=== PATIENT | male | born 1950 | race Caucasian/White ===

== ENCOUNTER → 2017-08-09 | Emergency (ER) | payer MEDICARE, SELFPAY | PROVIDERS: Emergency Provider Emergency Medicine; Family Provider Nurse Practitioner Family; Visit Provider Emergency Medicine | DX: E78.5 Hyperlipidemia, unspecified (principal); R06.02 Shortness of breath | CPT/HCPCS: 71020; 80053; 82550; 83605; 83880; 84484; 85025; 87040; 93005; 93041; 94640; 96374; 99284 ==

== ENCOUNTER → 2017-10-07 16:27 | Outpatient (CLI) | payer MEDICARE, SELFPAY ==
--- NOTE | 2017-10-07 16:37 | XR_ITS ---
XR chest 2V HISTORY: ITS.REASON: COUGH ORDERING PHYSICIAN: Tierra Mo PATIENT AGE: 67 years COMPARISON: 08/09/2017 FINDINGS: The cardiomediastinal silhouette and pulmonary vascularity are within normal limits. COPD with emphysematous change. Previously noted patchy infiltrate in right lung base has improved. There does remain some increased markings in this region. This may be due to vascular crowding however one cannot exclude possibility of infiltrate or atelectasis. There is also patchy density in the left midlung somewhat ill-defined. This area measures approximately 3 cm and has a rounded contour. Developing pulmonary nodule or round pneumonia is a consideration. Also could be related to healing rib fracture. Chest CT suggested for further evaluation. There is a healing rib fracture involving the right eighth rib. IMPRESSION: 1. COPD. 2. Developing nodule versus rounded pneumonia or healing rib fractures the left midlung. Recommend CT. 3. Chronic changes right lung base with possible superimposed atelectasis or infiltrate
== END ==
PROVIDERS: PCP Nurse Practitioner Family; Visit Provider Nurse Practitioner Family
DX: R05 Cough (principal)
CPT/HCPCS: 71046

== ENCOUNTER → 2017-10-24 14:06 | Outpatient (CLI) | payer MEDICARE, SELFPAY ==
[2017-10-24 14:31] LABS: Blood Urea Nitrogen 9 mg/dL (7-18); Creatinine,Serum 0.96 mg/dL (0.70-1.30); Estimated Glomerular Filt Rate 78 ml/min (>60); GFR (African American) 95 ML/MIN (>60)
--- NOTE | 2017-10-24 14:33 | CT_ITS ---
CT chest w con Ordering Physician: Tierra Mo Patient Age: 67 years: Male HISTORY: ITS.REASON: PULMONARY NODULE TECHNIQUE: Helical CT scanning performed the chest following 35 cc [id number]. Sagittal and coronal reconstructions on CT workstation. COMPARISON : FINDINGS Lung romero. Prominent COPD. centri lobar emphysematous changes with numerous blebs throughout the lung romero bilaterally particularly most evident towards upper lung romero and overall blebs more evident throughout the right lung than left . No highly suspect nodules or masses. Left lung. At the left CP angle is a small 6.6 mm area of nodularity most likely related to scarring.. Annual follow-up LD CT would be adequate here. There are some additional areas of linear pleural/parenchymal scarring towards the posterior left base. Right lung: right midlung axial image 44 is a small focal 3.5 mm density which also appears to be related to scarring on other projections. Sagittal slice 28 and coronal 44... Follow-up in one year adequate Small 8 mm length pleural calcification at the medial right lung base on axial 64. No associated mass. Likely reflects old inflammation. 4.4 mm benign calcified granuloma posterior right lower lobe axial slice 59. Associated calcified right hilar node largest measuring just less than 1 cm the right domonique is otherwise satisfactory with no hilar mass or adenopathy at right nor left domonique. Mediastinum. No mediastinal adenopathy or mass. Aorta appears satisfactory. Heart with coronary artery calcification at LAD and minimal calcification at the left main. It Upper Abdomen: A prominent hiatal hernia measuring up to 4.7 cm diameter. Upper normal wall thickness here. . Adrenals unremarkable.Spleen appears upper normal in size LIVER: 14 mm diameter x 16 mm length low-density area left lobe liver. Nonspecific density. Also be helpful for comparison Does not meet criteria for benign cyst. Suggest ultrasound to further evaluate and if not a cyst follow-up CT with contrast using hemangioma warranted if no outside studies. Osseous structures. No significant findings. Mild intramarginal osteophytes and early degenerative changes T-spine with mild kyphosis throughout T-spine. IMPRESSION 1. COPD. Prominent emphysematous changes lungs bilaterally. 2.. No suspicious nodules or masses at lungs. . Small nodular density left CP angle most likely due to scarring as is a small area of density at the right midlung. Follow-up low-density screening CT and one year follow these pulmonary features suggested. 3. Indeterminate 16 mm vague low-density area at the inferior left lobe of liver. Doubt cyst but would recommend ultrasound as next step for for this minor incidental unimpressive finding. .. If no cyst identified then follow-up CT with contrast warranted (suggest CT hemangioma protocol/ triphasic technique) 4. Spleen upper normal size. Hilar hernia.
== END ==
LOC: RAD 14:06
PROVIDERS: Internal Medicine; Family Provider Nurse Practitioner Family; PCP Nurse Practitioner Family; Visit Provider Nurse Practitioner Family
DX: Y99.9 Unspecified external cause status (principal)
CPT/HCPCS: 36415; 71260; 82565; 84520

== ENCOUNTER → 2017-10-24 14:10 | Outpatient (CLI) | payer MEDICARE, SELFPAY | PROVIDERS: Visit Provider Internal Medicine | DX: R91.1 Solitary pulmonary nodule (principal) | CPT/HCPCS: 36415; 71260; 82565; 84520 ==

== ENCOUNTER → 2017-11-11 08:19 | Outpatient (CLI) | payer MEDICARE, SELFPAY ==
--- NOTE | 2017-11-11 08:24 | US_ITS ---
US abdomen limited: HISTORY: ITS.REASON: LIVER MASS, ORDERING PHYSICIAN: Tierra Mo PATIENT AGE: 67 years COMPARISON: CT scan of 10/24/2017 FINDINGS: PANCREAS: Unremarkable. No obvious mass or abnormal fluid collection. No ductal dilatation LIVER: There is a hyperechoic 1.6 cm lesion involving the left hepatic lobe which may correspond to the CT abnormality. This may represent a hemangioma. A 1.5 cm cyst is present in the right hepatic lobe. This may not have been covered on the CT scan RIGHT KIDNEY: Unremarkable. Normal size and echogenicity. No hydronephrosis GALLBLADDER: No gallstones, gallbladder wall thickening, pericholecystic fluid, or biliary dilatation. IMPRESSION: 1. Hyperechoic 16 mm lesion in the left hepatic lobe likely corresponding to the CT abnormality and may be due to a hemangioma. This may be confirmed with CT with hemangioma protocol. 2. Hypoechoic lesion in the right hepatic lobe which may represent a hepatic cyst. Small vessels very close if not traversing along the lateral aspect of this lesion, therefore follow-up is recommended to confirm stability
== END ==
PROVIDERS: Family Provider Nurse Practitioner Family; PCP Nurse Practitioner Family; Visit Provider Nurse Practitioner Family
DX: D37.6 Neoplasm of uncertain behavior of liver, gallbladder and bile ducts (principal)
CPT/HCPCS: 76705

== ENCOUNTER → 2018-03-02 08:15 | Outpatient (CLI) | payer MEDICARE, SELFPAY ==
--- NOTE | 2018-03-02 08:30 | XR_ITS ---
XR DEXA axial skeleton COMPARISON: None HISTORY: History of fracture as an adult TECHNIQUE: DEXA scanning lumbar spine and bilateral hips FINDINGS: The areas BMD lumbar spine L1-L4 is 1.228 g/sq cm and the T score is 0.1. The total BMD right hip is 0.958 g centimeters square the T score -1.0 and the right femoral neck is 0.985 g centimeters square the T score of -0.7. The total BMD left hip is 0.959 g centimeters square with a T score of -1.0. The left femoral neck is 0.942 g centimeters square with T score -1.0. IMPRESSION: Normal study lumbar spine and both hips although the hips are borderline for osteopenia
[2018-03-02 08:43] LABS: Blood Urea Nitrogen 12 mg/dL (7-18); Creatinine,Serum 0.95 mg/dL (0.70-1.30); Estimated Glomerular Filt Rate 79 ml/min (>60); GFR (African American) 96 ML/MIN (>60)
--- NOTE | 2018-03-02 08:48 | CT_ITS ---
CT abdomen CLINICAL HISTORY: Suspected hemangioma left lobe of liver seen on recent ultrasound study TECHNIQUE: Axial images obtained with sagittal and coronal reformats. All CT scans at this facility use one or more dose reduction techniques, viz.: automated exposure control; ma/kV adjustment per patient size (including targeted exams where dose is matched to indication; i.e. head) or iterative reconstruction technique. Delayed imaging was performed as per hemangioma protocol. Scanning was performed from the hemidiaphragms to the iliac crest COMPARISON: Ultrasound abdomen limited 11/11/2017 PROCEDURE: With delayed imaging as per hemangioma protocol. No oral contrast was given.. FINDINGS: Lung bases: Mild centrilobular emphysematous changes are noted, there is no infiltrate and no pleural fluid or ABDOMEN: Liver the liver is normal in size. There is a hypodense lesion left lobe of liver measuring 1.7 cm in diameter which becomes isodense with liver parenchyma on the third phase of scanning typical of a hemangioma. . There is a small benign-appearing hepatic cyst lower portion right lobe of the liver measuring 10-11 mm in size.. Gallbladder: Nondistended. No radio opaque stones. Pancreas: No masses or peripancreatic fluid collections. Spleen: Unremarkable. Adrenals: Unremarkable Kidneys/ureters: No masses. No renal calculi. No hydronephrosis. No perinephric fluid collections. No ureteral dilatation or obvious ureteral calculi. Stomach appears grossly normal. The visualized portion of the small bowel appears normal. Impression: Small hypodense lesion left lobe of the liver showing typical imaging findings of a hemangioma, small benign-appearing hepatic cyst lower aspect of the right lobe
--- NOTE | 2018-03-02 09:47 | [facility].ITSHM ---
lasix,potassium,ventlin,levothryroxine,gabapention,atorvastatin losartin
== END ==
PROVIDERS: Family Provider Nurse Practitioner Family; PCP Nurse Practitioner Family; Visit Provider Nurse Practitioner Family
DX: D37.6 Neoplasm of uncertain behavior of liver, gallbladder and bile ducts (principal); S22.32XA Fracture of one rib, left side, initial encounter for closed fracture; M54.5 Low back pain; M81.0 Age-related osteoporosis without current pathological fracture; M25.551 Pain in right hip; M25.552 Pain in left hip
CPT/HCPCS: 36415; 74177; 77080; 82565; 84520; Q9967

== ENCOUNTER → 2018-06-02 09:08 | Outpatient (POV) | payer MEDICARE, SELFPAY | PROVIDERS: Family Provider Nurse Practitioner Family; PCP Nurse Practitioner Family; Visit Provider Internal Medicine | DX: Z00.00 Encounter for general adult medical examination without abnormal findings (principal) ==

== ENCOUNTER 2019-08-11 20:49 | Observation (INO) ==
[2019-08-11 21:33] LABS: Basophils % 0.2 % (0.1-2.0); Eosinophils % 0.2 % (0.1-12.0); Hematocrit 32.8 % (42.0-52.0); Hemoglobin 11.5 g/dL (14.1-18.0); Lymphocytes # 0.6 K/mm3 (0.7-4.5); Lymphocytes % 4.2 % (10-50); Mean Corpuscular HGB Conc 35.2 g/dL (31.8-35.4); Mean Corpuscular Volume 88.1 fl (80-94); Mean Platelet Volume 7.4 fl (7.4-10.4); Monocytes # 0.9 K/mm3 (0.1-1.0); Monocytes % 6.1 % (1.7-9.3); Neutrophils # 12.6 K/mm3 (1.8-7.8); Neutrophils % 89.3 % (37.0-80.0); Platelet Count 254 K/mm3 (142-424); Red Blood Count 3.72 M/mm3 (4.60-6.20); Red Cell Distribution Width 14.3 % (11.5-17.5); White Blood Count 14.1 K/mm3 (4.8-10.8)
[2019-08-11 21:50] LABS: Alanine Aminotransferase 17 U/L (12-78); Albumin Level 3.5 gm/dL (3.4-5.0); Alkaline Phosphatase 129 U/L (46-116); Anion Gap 17.7 mEq/L (5-15); Aspartate Amino Transferase 12 U/L (15-37); Bilirubin,Direct 0.2 mg/dL (0.0-0.2); Bilirubin,Indirect 1.1 mg/dL (0.0-0.9); Bilirubin,Total 1.3 mg/dL (0.2-1.0); Blood Urea Nitrogen 26 mg/dL (7-18); Calcium 8.4 mg/dL (8.5-10.1); Carbon Dioxide 22 mmol/L (21.0-32.0); Chloride 98 mmol/L (98-107); Glucose 112 mg/dL (74-106); Sodium 134 mmol/L (136-145); Total Protein,Serum 7.3 gm/dL (6.4-8.2)
[2019-08-11 22:00] LABS: Erythrocyte Sedimentation Rate 93 mm/hr (0-20)
[2019-08-11 22:06] LABS: Lymphocytes % 5 % (10-50); Neutrophils % 88 % (42-76); RBC Morphology Normal; Total Cells Counted 100
--- NOTE | 2019-08-11 23:35 | Emergency Department Note ---
ED Disposition Clinical Impression: Obesity (BMI 30.0-34.9), SIRS (systemic inflammatory response syndrome), Elevated erythrocyte sedimentation rate CAP (community acquired pneumonia) Qualifiers: Laterality: right Lung location: upper lobe of lung Qualified Code(s): J18.9 - Pneumonia, unspecified organism COPD (chronic obstructive pulmonary disease) Qualifiers: COPD type: unspecified COPD Qualified Code(s): J44.9 - Chronic obstructive pulmonary disease, unspecified Disposition: Admitted as Observation Condition on Discharge: Good - Critical Care Critical Care Time: No Attestation: On 08/11/19, the high probability of a clinically significant, sudden or life threatening deterioration of the following system(s) required my full and direct attention, intervention and personal management. The time I documented below is in addition to time spent performing reported procedures but includes the following listed in this critical care notation. Medical Decision Making - Medical Records Medical records reviewed: Yes: I reviewed the patient's medical records. - Avelino Inquiry Pt receiving controlled substance: No Vital Signs: 08/11/19 20:50 08/11/19 21:27 Temperature 101.8 F H 99.5 F Temperature Source Oral Oral Pulse Rate [Right] 121 H 110 H Respiratory Rate 22 20 Blood Pressure [Right Arm] 154/95 H 140/83 Blood Pressure Mean [Right Arm] 114 102 Blood Pressure Source [Right Arm] Automatic Cuff Automatic Cuff Blood Pressure Position [Right Arm] Supine Supine 02 Sat by Pulse Oximetry 93 L 93 L Oxygen Delivery Method Room Air Room Air - Lab Data Lab results reviewed: Yes: I reviewed the patient's lab results. Lab Results 08/11/19 21:00: WBC 14.1 H, RBC 3.72 L, Hgb 11.5 L, Hct 32.8 L, MCV 88.1, MCH 31.0, MCHC 35.2, RDW 14.3, Plt Count 254, MPV 7.4, Neut % (Auto) 89.3 H, Lymph % (Auto) 4.2 L, [place] % (Auto) 6.1, Eos % (Auto) 0.2, Baso % (Auto) 0.2, Neut # (Auto) 12.6 H, Lymph # (Auto) 0.6 L, [place] # (Auto) 0.9, Eos # (Auto) 0.0, Baso # (Auto) 0.0, Total Counted 100, Neutrophils % (Manual) 88 H, Band Neutrophils % 7.0, Lymphocytes % (Manual) 5 L, Platelet Estimate Normal, RBC Morphology Normal, ESR 93 H 08/11/19 21:00: Sodium 134 L, Potassium 3.7, Chloride 98, Carbon Dioxide 22, Anion Gap 17.7 H, BUN 26 H, Creatinine 1.12, Estimated Creat Clear 93, Estimated GFR 65, Est GFR ( Amer) 79, Glucose 112 H, Calcium 8.4 L, Total Bilirubin 1.3 H, Direct Bilirubin 0.2, Indirect Bilirubin 1.1 H, AST 12 L, ALT 17, Alkaline Phosphatase 129 H, Troponin I < 0.02, Total Protein 7.3, Albumin 3.5 08/11/19 21:00: Lactate 1.0 08/11/19 21:00: Influenza Type A Ag Negative, Influenza Type B Ag Negative 08/11/19 23:30: Urine Color Yellow, Urine Appearance Sl cloudy, Urine pH 6.0, Ur Specific [place] 1.010, Urine Protein Negative, Urine Glucose (UA) Negative, Urine Ketones Negative, Urine Blood Negative, Urine Nitrate Negative, Urine Bilirubin Negative, Urine Urobilinogen 0.2, Ur Leukocyte Esterase Negative, Amorphous Sediment Trace Result diagrams: 08/11/19 21:00 08/11/19 21:00 Orders (Tests/Meds): ED MEDICATIONS Generic Name Dose Route Start Last Admin Trade Name Freq PRN Reason Stop Dose Admin Azithromycin 500 mg/ Sodium 250 mls @ 250 mls/hr 08/11/19 23:30 08/11/19 23:32 Chloride IV 08/25/19 23:29 250 mls/hr Q24H JEFF Administration Protocol Ceftriaxone Sodium 1 gm/ 50 mls @ 100 mls/hr 08/11/19 23:30 08/11/19 23:31 Sodium Chloride IV 08/25/19 23:29 100 mls/hr Q24H JEFF Administration Protocol Sodium Chloride 3 ml 08/11/19 21:02 Sodium Chloride 3% 15ml Neb IH 09/10/19 21:01 ONCE PRN INDUCE SPUTUM COLLECTION Discontinued Medications Generic Name Dose Route Start Last Admin Trade Name Freq PRN Reason Stop Dose Admin Acetaminophen 1,000 mg 08/11/19 21:02 08/11/19 21:04 Tylenol 500mg Tablet PO 08/11/19 21:03 1,000 mg ONCE ONE Administration Albuterol/Ipratropium 3 ml 08/11/19 21:02 08/11/19 21:04 Duoneb 3ml Neb IH 08/11/19 21:03 3 ml ONCE ONE Administration Aspirin 324 mg 08/11/19 21:02 08/11/19 21:04 Aspirin 81mg Chewable Tablet PO 08/11/19 21:03 324 mg ONCE ONE Administration Sodium Chloride 1,000 mls @ 999 mls/hr 08/11/19 21:15 08/11/19 21:04 Sod Chlor 0.9% 1000ml Bag IV 08/11/19 22:15 999 mls/hr .Q1H1M JEFF Administration Methylprednisolone Sodium Succinate 125 mg 08/11/19 21:02 08/11/19 21:04 Solu-Medrol 125mg/2ml Vial IV 08/11/19 21:03 125 mg ONCE ONE Administration ORDERS Category Date Time Status XR chest 2V Stat Exams 08/11/19 21:02 Taken Troponin I Q3H Lab 08/12/19 00:05 Received Troponin I Q3H Lab 08/12/19 03:15 Ordered Blood Culture Stat Micro 08/11/19 21:00 Received Sputum Culture & Gram Stain Routine Micro 08/11/19 Ordered - Radiology Data #1 Image(s): Chest Image Reviewed: Yes I reviewed the patient's radiology image Preliminary Findings: Abnormal (rt sided changes ) - ECG Data Tracing #1 Normal Sinus Rhythm: Yes Ischemic changes: non-specific ST-T wave changes Chest Pain HPI - General Chief Complaint: Chest Pain Stated Complaint: chest pain Time Seen by Provider: 08/11/19 21:50 Mode of Arrival: Ambulatory Source of Information: Patient, Spouse, Medical Record Limitations: No Limitations Description of Symptoms (Recalled from ER Triage Doc. by RN): pt states he started having right chest pain starting yesterday - History of Present Illness HPI narrative: pt with sob and rt sided chest pain which started today - no prod cough - MD complaint: chest pain Onset (ago): day(s) Duration: intermittent Activity at onset: during rest Pain location: right chest Severity: moderate Quality: sharp Risk Factors for CAD: Family Hx of CAD Treatments prior to or on arrival for Cardiac Chest Pain: none - BEBO Score for Non-Stemi Age of Patient: 60-69 years old Heart Rate: 110-149 bpm Systolic Blood Pressure: 140-159 mmHg Serum Creatinine: 0.80-1.19 mg/dl CHF [place] Class: I-No CHF Other Risk Factors: None Non-Stemi Risk Score: 113 - Related Data Home Medications Medication Instructions Recorded Confirmed Amlodipine Besylate [Amlodipine 5 mg PO DAILY 08/11/19 08/11/19 5mg tab] Atorvastatin Calcium [Atorvastatin 40 mg PO HS 08/11/19 08/11/19 40mg Tab] Budesonide/Formoterol Fumarate 2 puff IH BID 08/11/19 08/11/19 [Symbicort 160-4.5 Mcg Inhaler] Furosemide [Furosemide 40MG tAB] 40 mg PO DAILY 08/11/19 08/11/19 Levothyroxine Sodium 50 mcg PO DAILY 08/11/19 08/11/19 [Levothyroxine 50mcg (0.05mg) Tab] Losartan Potassium 100 mg PO HS 08/11/19 08/11/19 Potassium Chloride [Pot Chlor 10 20 meq PO DAILY 08/11/19 08/11/19 mEq Tab] Allergies Allergy/AdvReac Type Severity Reaction Status Date / Time ampicillin [AMPICILLIN] Allergy Unknown Verified 08/11/19 21:03 prednisone [PREDNISONE] Allergy Unknown Verified 08/11/19 21:03 [facility] History - Hepatitis A Screen Drug use history?: No High risk sexual behaviors?: No History of sexually transmitted infection?: No Currently employed?: No Childcare worker?: No Do you have indoor plumbing?: Yes Do you have electricity?: Yes Attestation statement:: This patient has been screened for Hepatitis A risk factors. I have reviewed the patient's past medical history: Yes Medical History: Denies:: Diabetes Mellitus Type 1, Diabetes Mellitus Type 2 Laterality Cases: Right: Arthroscopy Shoulder - Social History Smoking Status: Former smoker Alcohol Intake: never Occupational Status: retired ROS Obtained: Yes All systems reviewed & no additional complaints - Constitutional Constitutional: Denies fever(s) - Eyes Eyes: Denies change in vision - ENT Ears, Nose, Mouth, and Throat: Denies sore throat - Cardiovascular Cardiovascular: Reports as per HPI, Reports chest pain, Reports dyspnea - Respiratory Respiratory: Yes cough, Yes non-productive cough - Gastrointestinal Gastrointestingal: Denies: abdominal pain - Genitourinary Male Genitourinary: Denies flank pain - Musculoskeletal Musculoskeletal: Denies joint pain, Denies joint swelling - Integumentary/Breasts Skin/Breast: Denies rash - Neurologic Neurologic: Denies headache(s), Denies seizure-like activity Physical Exam - General General appearance: alert, obese - Head Head exam: normocephalic - Eye Eye exam: Present: PERRL, EOMI. Absent: scleral icterus - ENT ENT exam: Present: mucous membranes dry - Neck Neck exam: Present: trachea midline - Respiratory Respiratory exam: Present: normal lung sounds bilaterally. Absent: respiratory distress - Cardiovascular Cardiovascular exam: Present: regular rate, systolic murmur, +S4 - Abdominal Exam Abdominal exam: Present: soft - Extremities Exam Extremities exam: Absent: calf tenderness - Neurological Exam Neurological exam: Present: alert, oriented X3, CN II-XII intact - Psychiatric Psychiatric exam: Present: normal affect - Skin Skin exam: Absent: rash
[2019-08-11 23:40] LABS: Microscopic, Urine URINE MICROSCOPIC (MICROSCOPIC)
[2019-08-11 23:41] LABS: Appearance,Urine SL CLOUDY (Clear); Bilirubin,Urine Negative (Negative); Blood, Urine Negative (Negative); Color,Urine YELLOW (Yellow); Glucose,Urine (UA) Negative (Negative); Ketones,Urine Negative (Negative); Leukocyte Esterase,Urine Negative (Negative); Protein,Urine Negative (Negative); Urobilinogen,Urine 0.2 EU/dl (0.2)
[2019-08-11 23:43] LABS: Amorphous Sediment,Urine Trace /lpf
[2019-08-12 04:09] LABS: Basophils % 0.1 % (0.1-2.0); Eosinophils % 0.1 % (0.1-12.0); Hematocrit 32.8 % (42.0-52.0); Hemoglobin 10.9 g/dL (14.1-18.0); Lymphocytes # 0.5 K/mm3 (0.7-4.5); Lymphocytes % 3.4 % (10-50); Mean Corpuscular HGB Conc 33.3 g/dL (31.8-35.4); Mean Corpuscular Volume 88.3 fl (80-94); Mean Platelet Volume 7.6 fl (7.4-10.4); Monocytes # 0.2 K/mm3 (0.1-1.0); Monocytes % 1.6 % (1.7-9.3); Neutrophils # 12.7 K/mm3 (1.8-7.8); Neutrophils % 94.8 % (37.0-80.0); Platelet Count 236 K/mm3 (142-424); Red Blood Count 3.72 M/mm3 (4.60-6.20); Red Cell Distribution Width 14.1 % (11.5-17.5); White Blood Count 13.4 K/mm3 (4.8-10.8)
[2019-08-12 04:15] LABS: Blood Urea Nitrogen 22 mg/dL (7-18); Calcium 8.1 mg/dL (8.5-10.1); Carbon Dioxide 23 mmol/L (21.0-32.0); Chloride 102 mmol/L (98-107); Sodium 137 mmol/L (136-145)
[2019-08-12 04:20] LABS: Glucose 183 mg/dL (74-106)
--- NOTE | 2019-08-12 07:36 | Pharmacy Consult Notes ---
[facility] Pharmacy VTE Monitoring - Patient Demographics Admission date: 08/11/19 Report Date: 08/12/19 Time: 07:36 Allergies/Adverse Reactions: Patient Allergies ampicillin [AMPICILLIN] Allergy (Unknown, Verified 08/11/19 21:03) prednisone [PREDNISONE] Allergy (Unknown, Verified 08/11/19 21:03) Height: 1.85 m Weight: 100.442 kg Patient Problems: Current Active Problems CAP (community acquired pneumonia) (Acute) COPD (chronic obstructive pulmonary disease) (Acute) Obesity (BMI 30.0-34.9) (Acute) SIRS (systemic inflammatory response syndrome) (Acute) Elevated erythrocyte sedimentation rate (Acute) - VTE Risk Labs: VTE Related Lab Results Hgb 10.9 g/dL (14.1-18.0) L 08/12/19 03:50 Hct 32.8 % (42.0-52.0) L 08/12/19 03:50 Plt Count 236 K/mm3 (142-424) 08/12/19 03:50 BUN 22 mg/dL (7-18) H 08/12/19 03:50 Creatinine 0.97 mg/dL (0.70-1.30) 08/12/19 03:50 Estimated Creat Clear 100 mL/min (50-200) 08/12/19 03:50 Was VTE Risk Assessment Performed: Yes VTE Score: 4 VTE Risk Level: Low Risk - Prophylaxis VTE Prophylaxis Ordered?: Yes Types of VTE Prophylaxis: TEDS Knee High Location of Applied Device: Bilateral Lower Extremeties - VTE Diagnosis Confirmed Treatment or plan recommended: Continue Current Treatment
--- NOTE | 2019-08-12 13:09 | H&P/Discharge Summary ---
General - General Admission date:: 08/12/19 Discharge date: 08/12/19 *Admission Date: 08/11/19 *Chief complaint: sob *History of present illness: 69-year-old male presented to the ER with complaints of right chest pain and shortness of breath. Patient states pain is worse with taking a deep breath. Based on x-ray further work-up on lung nodule. Patient denies cough, fever, or body aches. [facility] History I have reviewed the patient's past medical history: Yes Medical History: Reports:: Hyperlipidemia, Hypertension Denies:: Cancer, Diabetes Mellitus Type 1, Diabetes Mellitus Type 2, MRSA *Have you ever received a pneumonia vaccine?: Yes *Have you received a flu vaccine this season?: Yes Other Medical History: Reports: Arthritis Laterality Cases: Left: Arthroscopy Shoulder Other Surgeries: Yes: Hernia Repair (2) Amputation: No Fractures: Yes (LEFT ARM AND RIGHT FOOT) - *Social History Educational Level: Attended High School Smoking Status: Former smoker Tobacco Type: cigarettes # Packs/Day (cigarettes): 1 #Yrs smoked (if former smoker): 52 Smoking End Date: 2016 Alcohol Intake: never *Occupational Status:: retired Housing: house Household Members: spouse, children *Travel in the last 8 weeks: Outside the [facility] Family Hx:: Cancer, Tuberculosis Review of Systems - Review of Systems Review of systems:: pertinent systems reviewed and negative unless documented b elow - Constitutional Denies chills, Denies fever(s) - Eyes Denies change in vision - ENT Denies nasal discharge - *Cardiovascular Reports chest pain at rest, Reports chest pain with activity, Reports shortness of breath - *Respiratory Reports shortness of breath with activity, Reports pain on inspiration, Denies chest congestion, Denies cough - *Gastrointestinal Denies bloating, Denies nausea, Denies vomiting - *Genitourinary Denies urinary frequency - *Musculoskeletal Denies body aches - Integumentary/Breasts Denies rash - *Neurologic Denies abnormal movements, Denies headache(s), Denies seizure-like activity - Psychiatric Denies anxiety - Endocrine Denies flushing - Hematologic/Lymphatic Denies enlarged lymph nodes - Allergic/Immunologic Denies lip swelling Exam Vital signs and Labs for Last 24 Hours: Temp Pulse Resp BP Pulse Ox 97.6 F 104 H 18 138/85 95 08/12/19 12:24 08/12/19 12:24 08/12/19 12:24 08/12/19 12:24 08/12/19 12:24 Laboratory Results - last 24 hr 08/11/19 21:00: WBC 14.1 H, RBC 3.72 L, Hgb 11.5 L, Hct 32.8 L, MCV 88.1, MCH 31.0, MCHC 35.2, RDW 14.3, Plt Count 254, MPV 7.4, Neut % (Auto) 89.3 H, Lymph % (Auto) 4.2 L, Mcnairy % (Auto) 6.1, Eos % (Auto) 0.2, Baso % (Auto) 0.2, Neut # (Auto) 12.6 H, Lymph # (Auto) 0.6 L, Mcnairy # (Auto) 0.9, Eos # (Auto) 0.0, Baso # (Auto) 0.0, Total Counted 100, Neutrophils % (Manual) 88 H, Band Neutrophils % 7.0, Lymphocytes % (Manual) 5 L, Platelet Estimate Normal, RBC Morphology Normal, ESR 93 H 08/11/19 21:00: Sodium 134 L, Potassium 3.7, Chloride 98, Carbon Dioxide 22, Anion Gap 17.7 H, BUN 26 H, Creatinine 1.12, Estimated Creat Clear 93, Estimated GFR 65, Est GFR ( Amer) 79, Glucose 112 H, Calcium 8.4 L, Total Bilirubin 1.3 H, Direct Bilirubin 0.2, Indirect Bilirubin 1.1 H, AST 12 L, ALT 17, Alkaline Phosphatase 129 H, Troponin I < 0.02, Total Protein 7.3, Albumin 3.5 08/11/19 21:00: Lactate 1.0 08/11/19 21:00: Influenza Type A Ag Negative, Influenza Type B Ag Negative 08/11/19 23:30: Urine Color Yellow, Urine Appearance Sl cloudy, Urine pH 6.0, Ur Specific [place] 1.010, Urine Protein Negative, Urine Glucose (UA) Negative, Urine Ketones Negative, Urine Blood Negative, Urine Nitrate Negative, Urine Bilirubin Negative, Urine Urobilinogen 0.2, Ur Leukocyte Esterase Negative, Amorphous Sediment Trace 08/12/19 00:05: Troponin I < 0.02 08/12/19 03:50: WBC 13.4 H, RBC 3.72 L, Hgb 10.9 L, Hct 32.8 L, MCV 88.3, MCH 29.3, MCHC 33.3, RDW 14.1, Plt Count 236, MPV 7.6, Neut % (Auto) 94.8 H, Lymph % (Auto) 3.4 L, Mcnairy % (Auto) 1.6 L, Eos % (Auto) 0.1, Baso % (Auto) 0.1, Neut # (Auto) 12.7 H, Lymph # (Auto) 0.5 L, Mcnairy # (Auto) 0.2, Eos # (Auto) 0.0, Baso # (Auto) 0.0 08/12/19 03:50: Sodium 137, Potassium 4.0, Chloride 102, Carbon Dioxide 23, Anion Gap 16.0 H, BUN 22 H, Creatinine 0.97, Estimated Creat Clear 100, Estimated GFR 77, Est GFR ( Amer) 93, Glucose 183 H D, Calcium 8.1 L, Magnesium 1.9, Troponin I < 0.02 I & O for Last 24 hours: Intake & Output 08/10/19 08/11/19 08/12/19 08/13/19 11:59 11:59 11:59 11:59 Intake Total 1186 / 1186 240 / 240 Balance 1186 / 1186 240 / 240 Weight 221 lb 7 oz - Constitutional no acute distress - *Routine HEENT Exam Head: Present: normocephalic Eye: Present: PERRL ENT: Present: mucous membranes moist - *Routine Neck Exam Present: supple, full ROM. Absent: lymphadenopathy - *Routine Respiratory Exam Present: decreased breath sounds, rhonchi - *Routine Cardiovascular Exam Present: RRR - *Routine Abdominal Exam Present: soft, normoactive bowel sounds. Absent: tenderness - *Routine Extremities Exam Present: full ROM. Absent: cyanosis, clubbing, edema - *Routine Skin Exam Present: warm. Absent: rash - *Routine Neurological Exam Present: alert, oriented X3 - Routine Psychiatric Exam Present: normal affect Hospital Course Hospital Course: chest x ray: FINDINGS: The cardiomediastinal silhouette and pulmonary vascularity are within normal limits. There is a new moderate indistinct patchy density in the periphery of the right mid lung. There appears to be a few air bronchograms suggesting peribronchial infiltrates. The remainder of the chest is stable. There is a small stable gastric hernia. No acute bony abnormalities. IMPRESSION: Right mid lung peribronchial consolidation/atelectasis. Correlate to rule out pneumonia. ct chest IMPRESSION: COPD. Peripheral right lung densities are likely interstitial and could be focal interstitial pneumonitis although without prior study to compare, differential would include focal interstitial fibrosis. Right middle lobe subtle hazy ground-glass densities likely infectious or inflammatory as well. Moderate hiatal hernia. Today patient states he is feeling better pain has improved. Will discharge home on Omnicef, Zithromax, and prednisone for 5 days to treat pneumonia. Follow-up 1 week in office Results Labs on day of discharge: Labs from last 24 hours 08/12/19 08/12/19 08/12/19 03:50 03:50 00:05 WBC 13.4 H RBC 3.72 L Hgb 10.9 L Hct 32.8 L MCV 88.3 MCH 29.3 MCHC 33.3 RDW 14.1 Plt Count 236 MPV 7.6 Neut % (Auto) 94.8 H Lymph % (Auto) 3.4 L Mcnairy % (Auto) 1.6 L Eos % (Auto) 0.1 Baso % (Auto) 0.1 Neut # (Auto) 12.7 H Lymph # (Auto) 0.5 L Mcnairy # (Auto) 0.2 Eos # (Auto) 0.0 Baso # (Auto) 0.0 Total Counted Neutrophils % (Manual) Band Neutrophils % Lymphocytes % (Manual) Platelet Estimate RBC Morphology ESR Sodium 137 Potassium 4.0 Chloride 102 Carbon Dioxide 23 Anion Gap 16.0 H BUN 22 H Creatinine 0.97 Estimated Creat Clear 100 Estimated GFR 77 Est GFR ( Amer) 93 Glucose 183 H D Lactate Calcium 8.1 L Magnesium 1.9 Total Bilirubin Direct Bilirubin Indirect Bilirubin AST ALT Alkaline Phosphatase Troponin I < 0.02 < 0.02 Total Protein Albumin Urine Color Urine Appearance Urine pH Ur Specific [place] Urine Protein Urine Glucose (UA) Urine Ketones Urine Blood Urine Nitrate Urine Bilirubin Urine Urobilinogen Ur Leukocyte Esterase Amorphous Sediment Influenza Type A Ag Influenza Type B Ag 08/11/19 08/11/19 08/11/19 23:30 21:00 21:00 WBC RBC Hgb Hct MCV MCH MCHC RDW Plt Count MPV Neut % (Auto) Lymph % (Auto) Mcn[place] % (Auto) Eos % (Auto) Baso % (Auto) Neut # (Auto) Lymph # (Auto) Mcn[place] # (Auto) Eos # (Auto) Baso # (Auto) Total Counted Neutrophils % (Manual) Band Neutrophils % Lymphocytes % (Manual) Platelet Estimate RBC Morphology ESR Sodium Potassium Chloride Carbon Dioxide Anion Gap BUN Creatinine Estimated Creat Clear Estimated GFR Est GFR ( Amer) Glucose Lactate 1.0 Calcium Magnesium Total Bilirubin Direct Bilirubin Indirect Bilirubin AST ALT Alkaline Phosphatase Troponin I Total Protein Albumin Urine Color Yellow Urine Appearance Sl cloudy Urine pH 6.0 Ur Specific [place] 1.010 Urine Protein Negative Urine Glucose (UA) Negative Urine Ketones Negative Urine Blood Negative Urine Nitrate Negative Urine Bilirubin Negative Urine Urobilinogen 0.2 Ur Leukocyte Esterase Negative Amorphous Sediment Trace Influenza Type A Ag Negative Influenza Type B Ag Negative 08/11/19 08/11/19 21:00 21:00 WBC 14.1 H RBC 3.72 L Hgb 11.5 L Hct 32.8 L MCV 88.1 MCH 31.0 MCHC 35.2 RDW 14.3 Plt Count 254 MPV 7.4 Neut % (Auto) 89.3 H Lymph % (Auto) 4.2 L Mcn[place] % (Auto) 6.1 Eos % (Auto) 0.2 Baso % (Auto) 0.2 Neut # (Auto) 12.6 H Lymph # (Auto) 0.6 L Mcn[place] # (Auto) 0.9 Eos # (Auto) 0.0 Baso # (Auto) 0.0 Total Counted 100 Neutrophils % (Manual) 88 H Band Neutrophils % 7.0 Lymphocytes % (Manual) 5 L Platelet Estimate Normal RBC Morphology Normal ESR 93 H Sodium 134 L Potassium 3.7 Chloride 98 Carbon Dioxide 22 Anion Gap 17.7 H BUN 26 H Creatinine 1.12 Estimated Creat Clear 93 Estimated GFR 65 Est GFR ( Amer) 79 Glucose 112 H Lactate Calcium 8.4 L Magnesium Total Bilirubin 1.3 H Direct Bilirubin 0.2 Indirect Bilirubin 1.1 H AST 12 L ALT 17 Alkaline Phosphatase 129 H Troponin I < 0.02 Total Protein 7.3 Albumin 3.5 Urine Color Urine Appearance Urine pH Ur Specific [place] Urine Protein Urine Glucose (UA) Urine Ketones Urine Blood Urine Nitrate Urine Bilirubin Urine Urobilinogen Ur Leukocyte Esterase Amorphous Sediment Influenza Type A Ag Influenza Type B Ag - Additional Comments rounded with dr mims and all orders per dr mims DS: Diagnosis - Discharge Diagnosis (1) CAP (community acquired pneumonia) Status: Acute (2) COPD (chronic obstructive pulmonary disease) Status: Acute Discharge Plan - Patient Discharge Instructions ACTIVITY: Continue current activity DIET: continue same diet Patient Instructions: DI for Chronic Obstructive Pulmonary Disease, DI for Pneumonia -- Adult, DI for Chest Pain - Follow up Plan Follow up with: Avelino Mims MD [Emergency Provider] - 1 week Disposition: Home, Self-Fdc Medications: Home Medications Medication Instructions Recorded Confirmed Type Amlodipine Besylate [Amlodipine 5 mg PO DAILY 08/11/19 08/12/19 History 5mg tab] Atorvastatin Calcium [Atorvastatin 40 mg PO DAILY 08/11/19 08/12/19 History 40mg Tab] Budesonide/Formoterol Fumarate 2 puff IH BID 08/11/19 08/12/19 History [Symbicort 160-4.5 Mcg Inhaler] Furosemide [Furosemide 40MG tAB] 40 mg PO DAILY 08/11/19 08/12/19 History Levothyroxine Sodium 50 mcg PO DAILY 08/11/19 08/12/19 History [Levothyroxine 50mcg (0.05mg) Tab] Losartan Potassium 100 mg PO HS 08/11/19 08/12/19 History Potassium Chloride [Pot Chlor 10 20 meq PO DAILY 08/11/19 08/12/19 History mEq Tab] Azithromycin [Zithromax 250mg 250 mg PO DIRECTED 5 Days #6 tab 08/12/19 Rx tab] Cefdinir [Omnicef 300mg Capsule] 300 mg PO BID 10 Days #20 cap 08/12/19 Rx predniSONE [Prednisone 20mg 20 mg PO BID #10 tab 08/12/19 Rx Tab] Prescriptions/Medication Reconciliation: New Cefdinir [Omnicef 300mg Capsule] 300 mg PO BID 10 Days #20 cap predniSONE [Prednisone 20mg Tab] 20 mg PO BID #10 tab Azithromycin [Zithromax 250mg tab] 250 mg PO DIRECTED 5 Days #6 tab Continued Atorvastatin Calcium [Atorvastatin 40mg Tab] 40 mg PO DAILY Levothyroxine Sodium [Levothyroxine 50mcg (0.05mg) Tab] 50 mcg PO DAILY Amlodipine Besylate [Amlodipine 5mg tab] 5 mg PO DAILY Potassium Chloride [Pot Chlor 10 mEq Tab] 20 meq PO DAILY Losartan Potassium 100 mg PO HS Furosemide [Furosemide 40MG tAB] 40 mg PO DAILY Budesonide/Formoterol Fumarate [Symbicort 160-4.5 Mcg Inhaler] 2 puff IH BID - Problem Reconciliation Problems Reviewed?: Yes
--- NOTE | 2019-08-15 14:33 | Electrocardiograph Report ---
APPROVED REPORT Exam: Resting ECG HR:121 bpm ECG Measurements Heart Rate 121 AXES CO 148 P 80 QRSd 86 QRS 43 QT 328 T56 QTc 465 <Conclusion> Sinus tachycardia with premature atrial complexes Possible Inferior infarct, age undetermined Abnormal ECG Electronically signed by : Sonu Jaramillo, 08/15/2019 14:33:39
== END 2019-08-12 14:16 | disposition home or self-care (01) ==
LOC: ER 20:49 → 2ND 20:49
PROVIDERS: ADMIT Emergency Medicine; ATTEND Emergency Medicine
CPT/HCPCS: 36415; 71020; 71046; 71250; 80048; 80076; 81001; 83605; 83735; 84484; 85007; 85025; 85651; 87040; 87070; 87077; 87186; 87205; 87275; 87276; 93005; 94640; 96365; 96367; 96375; 99285; G0378; J0456

== ENCOUNTER → 2019-10-19 10:00 | Outpatient (CLI) | payer MEDICARE, SELFPAY ==
--- NOTE | 2019-10-19 10:09 | CT_ITS ---
PROCEDURE: CT CHEST WO/W CON CLINCAL INDICATION: PULMONARY NODULE Follow-up pulmonary nodule COMPARISON: CT CHEST WO CON from 08/12/2019 TECHNIQUE: IV Contrast: 75ml Optiray 350 Axial images obtained with sagittal and coronal reformats. All CT scans at the facility use one or more dose reduction, viz: automated exposure control, ma/kV adjustment per patient size (including targeted exams where dose is matched to indication, i.e. head), or iterative reconstruction technique. FINDINGS: HEART AND MEDIASTINAL STRUCTURES: There are few small mediastinal lymph nodes which have slightly increased in size. There is some increased soft tissue density in the right hilum consistent with underlying adenopathy. LUNGS AND PLEURAL SPACES: Panlobular emphysematous changes are present. There has been interval development of peripheral consolidation in the right upper lobe with air bronchograms laterally and medially consistent with pneumonia. Consolidation is also present in the right lower lobe posteriorly. Bullous changes are present in the upper lobes BONY STRUCTURES: There are old left-sided rib fractures UPPER ABDOMEN: Hiatal hernia. There are few small periportal lymph nodes ADDITIONAL FINDINGS: No other significant abnormalities. IMPRESSION: 1. Severe panlobular emphysematous changes with interval development of pneumonia in the right upper and right lower lobe with peripheral consolidation. 2. Mildly prominent mediastinal and right lymph nodes may be reactive. 3. Hiatal hernia Dictated by: Enrique Medina MD 10/20/2019 12:39 Electronically signed by Enrique Medina MD in [place] 10/20/2019 12:39
[2019-10-19 11:02] LABS: Chloride 102 mmol/L (98-107); Potassium 4.2 mmoL/L (3.5-5.1); Sodium 136 mmol/L (136-145)
[2019-10-19 11:05] LABS: Anion Gap 12.2 mEq/L (5-15); Blood Urea Nitrogen 12 mg/dl (9-20); Carbon Dioxide 26 mmol/L (22.0-30.0); Estimated Glomerular Filt Rate 74 ml/min (>60); GFR (African American) 90 ML/MIN (>60); Glucose 104 mg/dl (74-100)
== END ==
PROVIDERS: PCP Nurse Practitioner Family; Visit Provider Nurse Practitioner
DX: R91.1 Solitary pulmonary nodule (principal); I10 Essential (primary) hypertension
CPT/HCPCS: 36415; 71270; 80048; Q9967

== ENCOUNTER 2019-12-02 10:46 | Inpatient (IN) | payer MEDICARE, SELFPAY ==
[2019-12-02] VITALS (12 sets, daily range): BP systolic 101–139; BP diastolic 60–79; PULSE 65–107; RESP 20–22; TEMP 36–37.6; O2SAT 80–96; BMI 30.5; BMI 30.3; BMI 32.3
--- NOTE | 2019-12-02 10:51 | XR_ITS ---
PROCEDURE: XR CHEST PORTABLE CLINICAL HISTORY: SOA Shortness of air COMPARISON: CXR CHEST(2 VIEWS-NOT PORTABLE) from 08/09/2017 CXR2V XR chest 2V from 10/07/2017 XR CHEST 2V from 08/11/2019 CT CHEST WO/W CON from 10/19/2019 FINDINGS: Cardiomegaly without failure. There is COPD. Bilateral multifocal pneumonia is present in the right upper lobe, left upper lobe, and left lower lung zone. There may be some patchy infiltrate in the right lower lobe is well. There is some scarring in the right upper lobe. There is an old right 5th rib fracture anteriorly No acute bony abnormalities. IMPRESSION: Multifocal pneumonia with COPD. Dictated by: Enrique Medina MD 12/02/2019 12:01 Electronically signed by Enrique Medina MD in [facility] 12/02/2019 12:01
--- NOTE | 2019-12-02 10:53 | HMH.EDGENADL ---
ED Disposition Clinical Impression: Acute kidney injury, Severe sepsis Bilateral pneumonia Qualifiers: Pneumonia type: due to unspecified organism Lung location: unspecified part of lung Qualified Code(s): J18.9 - Pneumonia, unspecified organism Respiratory failure with hypoxia Qualifiers: Chronicity: acute Qualified Code(s): J96.01 - Acute respiratory failure with hypoxia Disposition: Admitted As Inpatient Condition on Discharge: Serious - Critical Care Critical Care Time: Yes Attestation: On , the high probability of a clinically significant, sudden or life threatening deterioration of the following system(s) required my full and direct attention, intervention and personal management. The time I documented below is in addition to time spent performing reported procedures but includes the following listed in this critical care notation. Total Critical Care Time: 35 Vital system(s) involved:: Respiratory Failure, Renal Failure My critical care processes included: Assessment & monitoring of V/S, Initial and Re-exams, Data Review/Interpretation, Coordinating Care, Medication Orders and management, Documentation Medical Decision Making - Medical Records Medical records reviewed: Yes: I reviewed the patient's medical records. - Avelino Inquiry Pt receiving controlled substance: No Vital Signs: 12/02/19 10:46 12/02/19 11:09 12/02/19 11:49 Temperature 99.7 F H Temperature Source Oral Pulse Rate Pulse Rate [Right] 107 H 97 H 65 Respiratory Rate 22 Blood Pressure Blood Pressure [Right Arm] 131/66 115/78 101/60 L Blood Pressure Mean [Right Arm] 87 90 73 Blood Pressure Source [Right Arm] Automatic Cuff Automatic Cuff Blood Pressure Position [Right Arm] Sitting Sitting 02 Sat by Pulse Oximetry 80 L 93 L 96 Oxygen Delivery Method Room Air Nasal Cannula Nasal Cannula Oxygen Flow Rate (LPM) 4 4 12/02/19 12:27 12/02/19 12:28 Temperature 99.2 F Temperature Source Oral Pulse Rate 98 H Pulse Rate [Right] 91 H Respiratory Rate 22 Blood Pressure 120/61 Blood Pressure [Right Arm] 120/61 Blood Pressure Mean [Right Arm] 80 Blood Pressure Source [Right Arm] Automatic Cuff Blood Pressure Position [Right Arm] Sitting 02 Sat by Pulse Oximetry 95 Oxygen Delivery Method Nasal Cannula Nasal Cannula Oxygen Flow Rate (LPM) 4 4 - Lab Data Lab results reviewed: Yes: I reviewed the patient's lab results. Lab Results 12/02/19 10:58: WBC 20.2 H*, RBC 4.08 L, Hgb 10.9 L, Hct 34.5 L, MCV 84.5, MCH 26.7 L, MCHC 31.5 L, RDW 13.6, Plt Count 476 H, MPV 8.5, Neut % (Auto) 87.1 H, Lymph % (Auto) 4.3 L, Christian % (Auto) 7.7, Eos % (Auto) 0.7, Baso % (Auto) 0.2, Neut # (Auto) 17.6 H, Lymph # (Auto) 0.9, Christian # (Auto) 1.6 H, Eos # (Auto) 0.2, Baso # (Auto) 0.0, Total Counted 100, Neutrophils % (Manual) 87 H, Lymphocytes % (Manual) 5 L, Monocytes % (Manual) 8, Platelet Estimate Marked increase, RBC Morphology Normal 12/02/19 10:58: Sodium 127 L, Potassium 3.8, Chloride 97 L, Carbon Dioxide 18 L, Anion Gap 15.8 H, BUN 57 H, Creatinine 2.80 H, Estimated Creat Clear 36, Estimated GFR 23 L, Est GFR ( Amer) 27 L, Glucose 102 H, Calcium 9.1, Total Bilirubin 0.6, AST 38, ALT 21, Alkaline Phosphatase 155 H, Troponin I 0.02, Total Protein 7.3, Albumin 3.7, Globulin 3.6 H, Albumin/Globulin Ratio 1.0 L 12/02/19 10:58: Lactate 1.1 12/02/19 10:58: Influenza Type A Ag Negative, Influenza Type B Ag Negative 12/02/19 11:06: Specimen Source R radial, O2 % 3.5 lpm, ABG pH 7.35, ABG pCO2 33.2 L, ABG pO2 92.6, ABG HCO3 17.8 L, ABG Total CO2 18.8 L, ABG O2 Saturation 97, ABG Base Excess -7.9 L, Enrique Test Acceptable 12/02/19 11:20: Group A Strep Rapid Negative 12/02/19 11:20: Chlamy pneumoniae PCR Not detected, Adenovirus (PCR) Not detected, B. pertussis DNA (PCR) Not detected, Coronavirus OC43 (PCR) Not detected, Coronavirus HKU1 (PCR) Not detected, Coronavirus 229E (PCR) Not detected, Coronavirus NL63 (PCR) Not detected, Human Metapneumovir PCR N
--- NOTE | 2019-12-02 11:04 | ECG_ITS ---
APPROVED REPORT Exam: Resting ECG HR:107 bpm ECG Measurements Heart Rate 107 AXES MD 148 P 33 QRSd 86 QRS -6 QT 322 T 5 QTc 429 <Conclusion> Sinus tachycardia with premature supraventricular complexes with occasional premature ventricular complexes Isolated Q wave in lead III Abnormal ECG Electronically signed by : Sonu Jaramillo, 12/03/2019 08:05:46
[2019-12-02 11:09] LABS: ABG Base Excess -7.9 mmol/L (-2.4-2.3); ABG HCO3 17.8 mmhg (22.0-26.0); ABG Oxygen Saturation 97 % (90-100); ABG PCO2 33.2 mmhg (35.0-45.0); ABG PH 7.35 mmol/L (7.35-7.45); ABG PO2 92.6 mmhg (80-100); ABG TCO2 18.8 mmhg (23-27); Allen's Test ACCEPTABLE; Oxygen 3.5 LPM %; Source R RADIAL
--- NOTE | 2019-12-02 11:10 | PC.NURSE ---
Rad at bedside
--- NOTE | 2019-12-02 11:17 | PC.NURSE ---
NOTIFIED COVID NURSE THAT MD WISHES TO TEST PT FOR COVID-19, STATED TO FILL OUT PAPER, LAB NOTIFIED AND HERE TO SWAB PT.
--- NOTE | 2019-12-02 11:24 | PC.NURSE ---
Lab at bedside
[2019-12-02 11:25] LABS: Basophils % 0.2 % (0.1-2.0); Eosinophils # 0.2 K/mm3 (0.0-0.4); Eosinophils % 0.7 % (0.1-12.0); Hematocrit 34.5 % (42.0-52.0); Hemoglobin 10.9 g/dL (14.1-18.0); Lymphocytes # 0.9 K/mm3 (0.7-4.5); Lymphocytes % 4.3 % (10-50); Mean Corpuscular HGB Conc 31.5 g/dL (31.8-35.4); Mean Corpuscular Hemoglobin 26.7 pg (27.0-31.2); Mean Corpuscular Volume 84.5 fl (80-94); Mean Platelet Volume 8.5 fl (7.4-10.4); Monocytes # 1.6 K/mm3 (0.1-1.0); Monocytes % 7.7 % (1.7-9.3); Neutrophils # 17.6 K/mm3 (1.8-7.8); Neutrophils % 87.1 % (37.0-80.0); Platelet Count 476 K/mm3 (142-424); Red Blood Count 4.08 M/mm3 (4.60-6.20); Red Cell Distribution Width 13.6 % (11.5-17.5); White Blood Count 20.2 K/mm3 (4.8-10.8)
[2019-12-02 11:29] LABS: Alanine Aminotransferase 21 U/L (12-78); Albumin Level 3.7 g/dl (3.5-5.0); Alkaline Phosphatase 155 U/L (38-126); Anion Gap 15.8 mEq/L (5-15); Aspartate Amino Transferase 38 U/L (17-59); Bilirubin,Total 0.6 mg/dl (0.2-1.3); Blood Urea Nitrogen 57 mg/dl (9-20); Calcium 9.1 mg/dl (8.4-10.2); Carbon Dioxide 18 mmol/L (22.0-30.0); Chloride 97 mmol/L (98-107); Creatinine Clearance Estimated 36 mL/min (50-200); Estimated Glomerular Filt Rate 23 ml/min (>60); GFR (African American) 27 ML/MIN (>60); Globulin 3.6 g/dL (1.3-3.2); Glucose 102 mg/dl (74-100); Potassium 3.8 mmoL/L (3.5-5.1); Sodium 127 mmol/L (136-145); Total Protein,Serum 7.3 g/dl (6.3-8.2)
[2019-12-02 11:30] LABS: Lactic Acid 1.1 mmol/L (0.7-2.1)
[2019-12-02 11:30] LABS: Strep Scrn Group A (Rapid) Negative (Negative)
[2019-12-02 11:31] LABS: MANUAL DIFFERENTIAL MANUAL DIFFERENTIAL (MANUAL DIFF)
[2019-12-02 11:37] LABS: Lymphocytes % 5 % (10-50); Monocytes % 8 % (2-9); Neutrophils % 87 % (42-76); Total Cells Counted 100
[2019-12-02 11:37] LABS: Adenovirus,PCR Not Detected (NotDetected); Bordetella Pertussis Not Detected (NotDetected); Chlamydophila Pneumoniae, PCR Not Detected (NotDetected); Coronavirus 229E Not Detected (NotDetected); Coronavirus NL63 Not Detected (NotDetected); Coronavirus OC43 Not Detected (NotDetected); Coronovirus HKU1,PCR Not Detected (NotDetected); Human Metapneumovirus Not Detected (NotDetected); Influenza A, PCR Not Detected (NotDetected); Influenza AH1, 2009 Not Detected (NotDetected); Influenza AH1, PCR Not Detected (NotDetected); Influenza AH3,PCR Not Detected (NotDetected); Influenza B, PCR Not Detected (NotDetected); Mycoplasma Pneumoniae, PCR Not Detected (NotDetected); Parainfluenza 1, PCR Not Detected (NotDetected); Parainfluenza 2, PCR Not Detected (NotDetected); Parainfluenza 3, PCR Not Detected (NotDetected); Parainfluenza 4, PCR Not Detected (NotDetected); Respiratory Syncytial Virus Not Detected (NotDetected); Rhinovirus/Enterovirus Not Detected (NotDetected)
[2019-12-02 11:38] LABS: Platelet Estimate Marked Increase; RBC Morphology Normal
--- NOTE | 2019-12-02 11:39 | PC.NURSE ---
NOTIFIED THAT PT MEETS CRITERIA FOR SEVERE SEPSIS
[2019-12-02 11:40] LABS: Troponin I 0.02 ng/ml (0.00-0.034)
--- NOTE | 2019-12-02 11:53 | PC.NURSE ---
Calling [facility] Internal medicine at this time for service doctor.
--- NOTE | 2019-12-02 11:54 | PC.NURSE ---
Dr Pritchard speaking with Dr Szymanski.
--- NOTE | 2019-12-02 12:28 | PC.NURSE ---
REPORT GIVEN TO SOFI IN COVID UNIT
--- NOTE | 2019-12-02 13:02 | HMH.PHAINT ---
HOME MEDICATION RECONCILIATION COMPLETED USING LIST FROM [facility] AND PT INTERVIEW IN ER
--- NOTE | 2019-12-02 14:24 | HMH.HP ---
*Admission Date: 12/02/19 *Chief complaint: SOA, fever, cough *History of present illness: Mr. Henry is a 69-year-old male with history of COPD who presents with 2 weeks of worsening shortness of breath and development of fever over the past week. Initially presented to the ER due to worsening dyspnea and feeling poorly. He states he usually uses his nebulizer 4 times a day and Symbicort twice a day for his COPD. He has not seen a textile artist in some time as his previous textile artist, Dr. Menendez, has retired. He wears oxygen over the past 1 to 2 weeks through the use of a borrowed concentrator. Does not have oxygen prescribed to him as his primary care stated they could not prescribe it, it would have to come from a textile artist. Of note he was admitted in July, after reviewing chart, it appears that he was actually seen by raj Hammond and Dr. Yanes. Came in due to chest pain and suspected pneumonia at that time. On assessment after getting to the floor, patient states he is feeling somewhat better after receiving breathing treatments in the ER. Is sitting up at bedside eating lunch. ER assessment concerning for tachycardia on arrival, hypoxemia with new oxygen requirement, elevated white cell count, and multifocal pneumonia on chest x-ray. Findings/presentation met criteria for sepsis. Also found to have significant kidney dysfunction with creatinine greater than 2, meeting criteria for severe sepsis with endorgan dysfunction. Given lymphopenia, image findings of multifocal opacifications, coronavirus test was obtained. Placed in respiratory isolation pending further results. Started on antibiotics and steroids. [facility] History I have reviewed the patient's past medical history: Yes Medical History: Reports:: Chronic Obstructive Pulmonary Disease (COPD), Hyperlipidemia, Hypertension Denies:: Cancer, Diabetes Mellitus Type 1, Diabetes Mellitus Type 2, MRSA *Have you ever received a pneumonia vaccine?: Yes *Have you received a flu vaccine this season?: Yes Other Medical History: Reports: Arthritis Laterality Cases: Left: Arthroscopy Shoulder Other Surgeries: Yes: Colonoscopy, Hernia Repair, Other Amputation: No Fractures: Yes (LEFT ARM AND RIGHT FOOT) - *Social History Smoking Status: Former smoker Tobacco Type: cigarettes # Packs/Day (cigarettes): 1 #Yrs smoked (if former smoker): 52 Alcohol Intake: never Substance Use Type: denies use *Occupational Status:: retired Housing: house Household Members: spouse, children *Travel in the last 8 weeks: None Family Hx:: Cancer, Tuberculosis Review of Systems - Review of Systems Review of systems:: pertinent systems reviewed and negative unless documented below (14 point review of systems performed, pertinent positives and negatives as per HPI) - *Neurologic Denies headache(s) Meds Home Medications Medication Instructions Recorded Confirmed Type Amlodipine Besylate [Amlodipine 5 mg PO DAILY 08/11/19 12/02/19 History 5mg tab] Atorvastatin Calcium [Atorvastatin 40 mg PO HS 08/11/19 12/02/19 History 40mg Tab] Budesonide/Formoterol Fumarate 2 puff IH BID 08/11/19 12/02/19 History [Symbicort 160-4.5 Mcg Inhaler] Furosemide [Furosemide 40MG tAB] 40 mg PO DAILY 08/11/19 12/02/19 History Levothyroxine Sodium 50 mcg PO DAILY 08/11/19 12/02/19 History [Levothyroxine 50mcg (0.05mg) Tab] Losartan Potassium 100 mg PO HS 08/11/19 12/02/19 History Ipratropium/Albuterol Sulfate 3 ml IH QIDP PRN 12/02/19 12/02/19 History [Duoneb 3mL neb] Allergies Allergy/AdvReac Type Severity Reaction Status Date / Time prednisone Allergy Mild swelling Verified 08/20/19 15:05 ampicillin [AMPICILLIN] Allergy Unknown Unknown Verified 08/20/19 15:03 allergy reaction Exam Vital signs and Labs for Last 24 Hours: Temp Pulse Resp BP Pulse Ox 98.9 F 70 22 132/68 94 L 12/02/19 13:04 12/02/19 13:04 12/02/19 13:04 12/02/19 13:04 12/02/19 13:0
--- NOTE | 2019-12-02 18:40 | PC.NURSE ---
Pt alert and oriented and able to make needs known. RR even and unlabored. NAD and no complaints currently. Scattered wheezing rema lung romero. Has been sinus arrythmia with pacs/pvcs on tele mx. Have had to replace lead often d/t movement. Sitting on side of bed with 02 @ 2 L. NC. Currently sats are 92%. Have made made Dr. Szymanski aware of pt having decreased u/o this shift. CB in reach. Pt has refused teds and is on lovenox. Will cont to mx this shift.
--- NOTE | 2019-12-02 19:05 | PC.NURSE ---
Dr. Szymanski stated if no void by [address] otero, will notify oncoming RN.
[2019-12-03] VITALS (10 sets, daily range): BP systolic 115–163; BP diastolic 68–93; PULSE 83–107; RESP 19–20; TEMP 35.8–36.7; O2SAT 76–98
--- NOTE | 2019-12-03 00:09 | PC.NURSE ---
charted on wrong patient. this edited version is correct
--- NOTE | 2019-12-03 01:36 | PC.NURSE ---
shift summary, pt has been cool to touch, oral and axillary temperature 94-95 degrees requiring rectal temperatures, pt has had persistent cough, becoming more productive, sputum sample sent to lab, breath sounds remain diminished.
--- NOTE | 2019-12-03 04:52 | PC.NURSE ---
not done per nurses order. Nurse to give order was nubia guzman.
--- NOTE | 2019-12-03 05:45 | PC.NURSE ---
charting on wrong patient
--- NOTE | 2019-12-03 05:46 | PC.NURSE ---
charted on the wrong patient
[2019-12-03 06:33] LABS: Basophils # 0.1 K/mm3 (0-0.2); Basophils % 0.4 % (0.1-2.0); Eosinophils % 0.2 % (0.1-12.0); Hemoglobin 11.5 g/dL (14.1-18.0); Lymphocytes # 0.6 K/mm3 (0.7-4.5); Lymphocytes % 4.7 % (10-50); Mean Corpuscular Hemoglobin 26.7 pg (27.0-31.2); Mean Corpuscular Volume 86.3 fl (80-94); Mean Platelet Volume 7.8 fl (7.4-10.4); Monocytes # 0.4 K/mm3 (0.1-1.0); Monocytes % 2.8 % (1.7-9.3); Neutrophils # 12.8 K/mm3 (1.8-7.8); Neutrophils % 92.1 % (37.0-80.0); Platelet Count 509 K/mm3 (142-424); Red Blood Count 4.29 M/mm3 (4.60-6.20); Red Cell Distribution Width 13.6 % (11.5-17.5); White Blood Count 13.9 K/mm3 (4.8-10.8)
[2019-12-03 06:37] LABS: Chloride 97 mmol/L (98-107); Potassium 4.1 mmoL/L (3.5-5.1); Sodium 131 mmol/L (136-145)
[2019-12-03 06:40] LABS: Anion Gap 19.1 mEq/L (5-15); Blood Urea Nitrogen 60 mg/dl (9-20); Carbon Dioxide 19 mmol/L (22.0-30.0); Creatinine Clearance Estimated 56 mL/min (50-200); Estimated Glomerular Filt Rate 33 ml/min (>60); GFR (African American) 40 ML/MIN (>60)
[2019-12-03 06:41] LABS: Calcium 9.1 mg/dl (8.4-10.2); Glucose 140 mg/dl (74-100)
[2019-12-03 07:27] LABS: MANUAL DIFFERENTIAL MANUAL DIFFERENTIAL (MANUAL DIFF)
--- NOTE | 2019-12-03 08:17 | HMH.ACPN2 ---
Internal Medicine - PN: Subj *Date: 12/03/19 *Time: 13:30 Interval history: Patient has done well overnight. Denies any worsening shortness of breath. Cough somewhat improved. Stable on 2 L oxygen with O2 sats in the low 90s. Denies any nausea, vomiting, diarrhea, chest pain. Having some heartburn symptoms. Hemodynamically stable. Afebrile for the past 24 hours. Exam Vital signs and Labs for Last 24 Hours: Temp Pulse Resp BP Pulse Ox 97.0 F L 98 H 20 153/93 H 98 12/03/19 08:00 12/03/19 08:00 12/03/19 08:00 12/03/19 08:00 12/03/19 08:00 Laboratory Results - last 24 hr 12/02/19 10:58: WBC 20.2 H*, RBC 4.08 L, Hgb 10.9 L, Hct 34.5 L, MCV 84.5, MCH 26.7 L, MCHC 31.5 L, RDW 13.6, Plt Count 476 H, MPV 8.5, Neut % (Auto) 87.1 H, Lymph % (Auto) 4.3 L, [place] % (Auto) 7.7, Eos % (Auto) 0.7, Baso % (Auto) 0.2, Neut # (Auto) 17.6 H, Lymph # (Auto) 0.9, [place] # (Auto) 1.6 H, Eos # (Auto) 0.2, Baso # (Auto) 0.0, Total Counted 100, Neutrophils % (Manual) 87 H, Lymphocytes % (Manual) 5 L, Monocytes % (Manual) 8, Platelet Estimate Marked increase, RBC Morphology Normal 12/02/19 10:58: Sodium 127 L, Potassium 3.8, Chloride 97 L, Carbon Dioxide 18 L, Anion Gap 15.8 H, BUN 57 H, Creatinine 2.80 H, Estimated Creat Clear 36, Estimated GFR 23 L, Est GFR ( Amer) 27 L, Glucose 102 H, Calcium 9.1, Total Bilirubin 0.6, AST 38, ALT 21, Alkaline Phosphatase 155 H, Troponin I 0.02, Total Protein 7.3, Albumin 3.7, Globulin 3.6 H, Albumin/Globulin Ratio 1.0 L 12/02/19 10:58: Lactate 1.1 12/02/19 10:58: Influenza Type A Ag Negative, Influenza Type B Ag Negative 12/02/19 11:06: Specimen Source R radial, O2 % 3.5 lpm, ABG pH 7.35, ABG pCO2 33.2 L, ABG pO2 92.6, ABG HCO3 17.8 L, ABG Total CO2 18.8 L, ABG O2 Saturation 97, ABG Base Excess -7.9 L, Enrique Test Acceptable 12/02/19 11:20: Group A Strep Rapid Negative 12/02/19 11:20: Chlamy pneumoniae PCR Not detected, Adenovirus (PCR) Not detected, B. pertussis DNA (PCR) Not detected, Coronavirus OC43 (PCR) Not detected, Coronavirus HKU1 (PCR) Not detected, Coronavirus 229E (PCR) Not detected, Coronavirus NL63 (PCR) Not detected, Human Metapneumovir PCR Not detected, Influenza A (H1) PCR Not detected, Influ A (H1N1/09) PCR Not detected, Influenza A (H3) PCR Not detected, Influenza Type A (PCR) Not detected, Influenza Type B (PCR) Not detected, M. pneumoniae (PCR) Not detected, Parainfluenza 1 (PCR) Not detected, Parainfluenza 2 (PCR) Not detected, Parainfluenza 3 (PCR) Not detected, Parainfluenza 4 (PCR) Not detected, RSV (PCR) Not detected, Entero/Rhino (PCR) Not detected 12/03/19 06:10: WBC 13.9 H D, RBC 4.29 L, Hgb 11.5 L, Hct 37.0 L, MCV 86.3, MCH 26.7 L, MCHC 31.0 L, RDW 13.6, Plt Count 509 H, MPV 7.8, Neut % (Auto) 92.1 H, Lymph % (Auto) 4.7 L, [place] % (Auto) 2.8, Eos % (Auto) 0.2, Baso % (Auto) 0.4, Neut # (Auto) 12.8 H, Lymph # (Auto) 0.6 L, [place] # (Auto) 0.4, Eos # (Auto) 0.0, Baso # (Auto) 0.1 12/03/19 06:10: Sodium 131 L, Potassium 4.1, Chloride 97 L, Carbon Dioxide 19 L, Anion Gap 19.1 H, BUN 60 H, Creatinine 2.00 H D, Estimated Creat Clear 56, Estimated GFR 33 L, Est GFR ( Amer) 40 L D, Glucose 140 H D, Calcium 9.1 I & O for Last 24 hours: Intake & Output 11/30/19 12/01/19 12/02/19 12/03/19 23:59 23:59 23:59 23:59 Intake Total 2712 / 2712 1917 / 1917 Output Total 715 / 715 750 / 750 Balance 1996 1168 / 1168 Weight 111.13 kg Narrative: - Constitutional No acute distress, 2 L nasal cannula, obese, chronically ill appearing - *Routine HEENT Exam Head: Present: normocephalic Eye: Present: EOMI, PERRL ENT: Present: mucous membranes moist - *Routine Neck Exam Present: supple. Absent: lymphadenopathy - *Routine Respiratory Exam Present: accessory muscle use, prolonged expiratory phase, wheezes, crackles, diminished air movement - *Routine Cardiovascular Exam Present: RRR - *Routine Abdominal Exam Present: soft, normoactive bowel sounds. Absent: tenderness - *
[2019-12-03 09:22] LABS: Lymphocytes % 7 % (10-50); Monocytes % 3 % (2-9); Neutrophils % 90 % (42-76); Total Cells Counted 100
[2019-12-03 09:23] LABS: Platelet Estimate Slight Increase; RBC Morphology Normal
--- NOTE | 2019-12-03 13:30 | PC.NURSE ---
Notified Dr Szymanski of positive blood culture
[2019-12-03 16:21] LABS: Covid-19 Nasal PCR Sendout Lex NOT DETECTED
--- NOTE | 2019-12-03 16:24 | PC.NURSE ---
dr. elias notified that pt's COVID-19 TESTING IS NEGATIVE
--- NOTE | 2019-12-03 17:07 | PC.NURSE ---
Alert and oriented x3. Some wheezes/rhonchi noted to lungs. He remains on 2L NC with O2 sats running in the lower 90's. Room air is low-mid 80's. He has utilized a urinal at the bedside. Urine is clear and jaime in color. He's had 1250 ml's out thus far. He reports feeling much better today than yesterday. Only complaint was some heartburn. Dr Szymanski notified and tums and famotadine ordered (see previous note). Will continue to monitor.
--- NOTE | 2019-12-03 17:39 | PC.NURSE ---
report called to REZA Sterling
[2019-12-04 04:00] VITALS: BP 158/93; PULSE 102; RESP 20; TEMP 36.5; O2SAT 94
--- NOTE | 2019-12-04 05:45 | PC.NURSE ---
Pt slept in short intervals this shift. Tolerating 2LNC w/ sats 92%-96%. No c/o pain or SOA reported. Pt has had an intermittent cough that is non-productive. Pt ambulating independently in room and voiding w/o issues. BM reported this shift. Pt took a shower and states he is feeling much better.
[2019-12-04 06:13] VITALS: O2SAT 91
--- NOTE | 2019-12-04 06:14 | PC.NURSE ---
RA sat of 91% obtained at this time
[2019-12-04 06:46] VITALS: O2SAT 94
[2019-12-04 07:23] VITALS: BP 154/89; PULSE 93; RESP 18; TEMP 36.6; O2SAT 93
[2019-12-04 07:25] LABS: Basophils # 0.1 K/mm3 (0-0.2); Basophils % 0.7 % (0.1-2.0); Eosinophils % 0.1 % (0.1-12.0); Hematocrit 33.7 % (42.0-52.0); Hemoglobin 10.6 g/dL (14.1-18.0); Lymphocytes # 0.6 K/mm3 (0.7-4.5); Lymphocytes % 4.2 % (10-50); Mean Corpuscular HGB Conc 31.4 g/dL (31.8-35.4); Mean Corpuscular Hemoglobin 26.9 pg (27.0-31.2); Mean Corpuscular Volume 85.8 fl (80-94); Mean Platelet Volume 7.2 fl (7.4-10.4); Monocytes # 0.5 K/mm3 (0.1-1.0); Monocytes % 3.3 % (1.7-9.3); Neutrophils # 12.6 K/mm3 (1.8-7.8); Neutrophils % 91.7 % (37.0-80.0); Platelet Count 591 K/mm3 (142-424); Red Blood Count 3.92 M/mm3 (4.60-6.20); Red Cell Distribution Width 14.1 % (11.5-17.5); White Blood Count 13.7 K/mm3 (4.8-10.8)
[2019-12-04 07:28] LABS: MANUAL DIFFERENTIAL MANUAL DIFFERENTIAL (MANUAL DIFF)
[2019-12-04 07:30] LABS: Chloride 104 mmol/L (98-107); Potassium 4.4 mmoL/L (3.5-5.1); Sodium 135 mmol/L (136-145)
[2019-12-04 07:33] LABS: Alanine Aminotransferase 21 U/L (12-78); Albumin Level 3.3 g/dl (3.5-5.0); Albumin/Globulin Ratio 0.9 (1.1-1.8); Alkaline Phosphatase 151 U/L (38-126); Anion Gap 14.4 mEq/L (5-15); Aspartate Amino Transferase 33 U/L (17-59); Bilirubin,Total 0.3 mg/dl (0.2-1.3); Blood Urea Nitrogen 57 mg/dl (9-20); Calcium 9.2 mg/dl (8.4-10.2); Carbon Dioxide 21 mmol/L (22.0-30.0); Creatinine Clearance Estimated 74 mL/min (50-200); Estimated Glomerular Filt Rate 50 ml/min (>60); GFR (African American) 61 ML/MIN (>60); Globulin 3.5 g/dL (1.3-3.2); Glucose 132 mg/dl (74-100); Total Protein,Serum 6.8 g/dl (6.3-8.2)
[2019-12-04 07:53] LABS: Acanthocytes 1+; Lymphocytes % 3 % (10-50); Monocytes % 5 % (2-9); Neutrophils % 92 % (42-76); Platelet Estimate Slight Increase; Poikilocytosis 1+; Total Cells Counted 100
--- NOTE | 2019-12-04 07:53 | HMH.DCSUM ---
General - General Admission date:: 12/02/19 Discharge date: 12/04/19 HPI HPI: Mr. Henry is a 69-year-old male with history of COPD who presents with 2 weeks of worsening shortness of breath and development of fever over the past week. Initially presented to the ER due to worsening dyspnea and feeling poorly. He states he usually uses his nebulizer 4 times a day and Symbicort twice a day for his COPD. He has not seen a arboriculture instructor in some time as his previous arboriculture instructor, Dr. Menendez, has retired. He wears oxygen over the past 1 to 2 weeks through the use of a borrowed concentrator. Does not have oxygen prescribed to him as his primary care stated they could not prescribe it, it would have to come from a arboriculture instructor. Of note he was admitted in July, after reviewing chart, it appears that he was actually seen by raj Hammond and Dr. Yanes. Came in due to chest pain and suspected pneumonia at that time. On assessment after getting to the floor, patient states he is feeling somewhat better after receiving breathing treatments in the ER. Is sitting up at bedside eating lunch. ER assessment concerning for tachycardia on arrival, hypoxemia with new oxygen requirement, elevated white cell count, and multifocal pneumonia on chest x-ray. Findings/presentation met criteria for sepsis. Also found to have significant kidney dysfunction with creatinine greater than 2, meeting criteria for severe sepsis with endorgan dysfunction. Given lymphopenia, image findings of multifocal opacifications, coronavirus test was obtained. Placed in respiratory isolation pending further results. Started on antibiotics and steroids. Hospital Course Hospital Course: 69-year-old gentleman admitted for severe sepsis and bilateral pneumonia with significant acute kidney injury. Due to appearance on imaging, and new oxygen requirement, he was initiated on ceftriaxone, azithromycin, and tested for COVID-19. Admitted to respiratory isolation while awaited COVID-19 testing. Showed improvement over the first 24 hours with decreasing creatinine after fluid resuscitation, remained afebrile and hemodynamically stable, stable oxygen requirement. COVID-19 test returned back negative. Patient was transitioned out of respiratory isolation and continued on IV antibiotics and breathing treatments. He overall has done well during hospitalization. He will need home oxygen as he meets criteria with an 80% SPO2 at rest. Will transition to oral antibiotics entheses Levaquin) to complete a 10-day course. Recommend he follow-up closely with his primary care. Also would benefit from referral to pulmonology as soon as possible for further management. May benefit from PFTs as he states he has never had these. Discontinued his Symbicort, switched him over to Anoro for better more specific treatment for COPD with combined LABA/LAMA therapy. Also refilled patient's DuoNeb's. Instructed to resume his nebulizer and inhalers when he gets home. Do have suspicion about right upper lobe consolidation as it is been present there several times before, if he has recurrent pneumonia in that region, he may benefit from pulmonology and a bronchoscopy. Kidney dysfunction still above baseline however improving significantly. Recommend repeat lab work in a week. Denies chest pain, nausea, vomiting, confusion, diarrhea. Still has baseline shortness of breath though intervally improved since admission. Objective Vital signs: Temp Pulse Resp BP Pulse Ox 97.8 F 93 H 18 154/89 H 93 L 12/04/19 07:23 12/04/19 07:23 12/04/19 07:23 12/04/19 07:23 12/04/19 07:23 Narrative: - Constitutional No acute distress, 2 L nasal cannula, obese, chronically ill appearing - *Routine HEENT Exam Head: Present: normocephalic Eye: Present: EOMI, PERRL ENT: Present: mucous membranes moist - *Routine Neck Exam Present: supple. Absent: lymphadenopathy - *Routine Respiratory Ex
--- NOTE | 2019-12-04 10:48 | HMH.PHAINT ---
DISCHARGE COUNSELING COMPLETED ON PATIENT. NEW PRESCRIPTIONS INCLUDE FAMOTIDINE, PREDNISONE, LEVOFLOXACIN, ANORO, AND DUONEBS. PATIENT IS TO STOP SYMBICORT INHALER IN FAVOR OF ANORO. ALL NEW PRESCRIPTIONS WERE SENT TO [facility]. PATIENT IS TO CONTINUE ALL OTHER HOME MEDICATIONS. WHILE GOING THROUGH NEW MEDICATIONS WITH PATIENT, HE STATED THAT HE HAD AN ALLERGY TO PREDNISONE IN WHICH HIS LEG WOULD SWELL. INFORMED PATIENT THAT THIS IS A COMMON SIDE EFFECT WITH STEROIDS AND PATIENT HAS BEEN ON SOLU-MEDROL WHILE IN THE HOSPITAL WHICH IS ALSO A STEROID. RELAYED INFORMATION TO DR. AGIULERA WHO WAS AWARE OF ADVERSE EFFECT AND WAS OKAY WITH PREDNISONE FOR PATIENT. WENT BACK TO PATIENT'S ROOM AND GAVE HIM THIS INFORMATION. PATIENT STATED THAT HE COULD NOT HANDLE THE SWELLING AGAIN AND PROBABLY WOULD NOT BE TAKING PREDNISONE. HIGHLY RECOMMENDED PATIENT COMPLETE STEROID COURSE. PATIENT VERBALIZED UNDERSTANDING AND HAD NO OTHER QUESTIONS AT THIS TIME. -ALAINA ZAMAN, HARISHD
--- NOTE | 2019-12-04 11:13 | PC.NURSE ---
THIS RN PROVIDED D/C INSTRUCTIONS IN REGARDS TO INFECTION PREVENTION, WASHING HANDS AND NOT TO TOUCH FACE OR SURFACES WHEN POSSIBLE. PATIENT VERBALIZED AN UNDERSTANDING. PATIENT REFUSED MORNING MEDICATIONS AND STATED HE WILL TAKE THEM WHEN HE GETS HOME. PATIENT LEFT WITH O2, THIS RN INQUIRED IN REGARDS TO PATIENT NEEDING ANY FURTHER TEACHING FOR HIS O2. PATIENT STATED HE IS FINE. NO OTHER NEEDS OR CONCERNS AT THIS TIME.
== END 2019-12-04 10:13 | disposition home or self-care (01) | DRG 193 ==
LOC: ER 12:05 → ICU 12:14 → 2ND 12-03 18:39
PROVIDERS: Admitting Provider Internal Medicine Adolescent Medicine; Emergency Provider Emergency Medicine; Visit Provider Internal Medicine Adolescent Medicine
DX: J18.9 Pneumonia, unspecified organism (principal); J96.01 Acute respiratory failure with hypoxia; R65.20 Severe sepsis without septic shock; N17.9 Acute kidney failure, unspecified; J44.9 Chronic obstructive pulmonary disease, unspecified; Z87.891 Personal history of nicotine dependence; E03.9 Hypothyroidism, unspecified; Z79.899 Other long term (current) drug therapy; Z88.1 Allergy status to other antibiotic agents; I10 Essential (primary) hypertension
CPT/HCPCS: 36415; 71045; 80048; 80053; 82803; 83605; 84484; 85007; 85025; 87040; 87077; 87186; 87275; 87276; 87430; 87486; 87581; 87633; 87798; 93005; 94640; 96365; 96367; 96375; 99285; J0456; J2405

== ENCOUNTER 2020-01-10 09:45 | Inpatient (IN) | payer MEDICARE, SELFPAY ==
[2020-01-10] VITALS (14 sets, daily range): BP systolic 130–191; BP diastolic 88–104; PULSE 102–131; RESP 17–24; TEMP 36.4–36.9; O2SAT 94–100; BMI 27.5; BMI 21.1
--- NOTE | 2020-01-10 09:53 | ECG_ITS ---
APPROVED REPORT Exam: Resting ECG HR:124 bpm ECG Measurements Heart Rate 124 AXES ID 152 P 62 QRSd 82 QRS -35 QT 316 T 31 QTc 453 <Conclusion> Sinus tachycardia with occasional premature ventricular complexes and fusion complexes Left axis deviation Abnormal ECG Electronically signed by : Mark Sanchez, 01/11/2020 08:42:20
--- NOTE | 2020-01-10 10:10 | CT_ITS ---
PROCEDURE: CT CHEST WO CON Patient Age:69Y CLINICAL INDICATION: cough and dyspnea Former smoker COMPARISON: CT CHEST WO/W CON from 10/19/2019 XR CHEST PORTABLE from 12/02/2019 TECHNIQUE: No IV contrast utilized. Helical axial images obtained with axial sagittal and coronal reformats. All CT scans at the facility use one or more dose reduction, viz: automated exposure control, ma/kV adjustment per patient size (including targeted exams where dose is matched to indication, i.e. head), or iterative reconstruction technique. FINDINGS: LUNGS & PLEURA SPACE: Underlying advanced panlobar emphysematous changes are again evident. LEFT LUNG: Prominent left upper lobe pneumonia and consolidation.. Most pronounced dense consolidation GELY, with air bronchograms and volume loss is seen involving the apical posterior segment GELY, less pronounced infiltrate and consolidation also seen involving anterior segment GELY and possibly into the superior lingular segment GELY.. No central obstructive disease. December 01 pCXR the showed large regions of significant left upper lobe pneumonia, but this is clearly progressed in the interval as even evident seen on today's CT catering assistant view. AP and lateral chest that can be use for preferably a PA and lateral chest when can be tolerated of for future comparison. RIGHT LUNG.: The pneumonia and airspace disease seen at the periphery of the RUL has a clearly improved since October 2019 CT and November 2019 pCXR. We now see would appear to be mainly postinflammatory changes. Residual linear scarring and atelectasis is seen along the superior margin of the minor fissure and more posteriorly are just superior to the major fissure. There is slight retraction periphery reflecting the scarring.. Also 2nd area of pneumonia previously seen at medial right lung base and posterior sulcus region has resolved since October 2019CT chest MEDIASTINAL : No significant mediastinal mass nor adenopathy. RIGHT DARRYN. Calcified granulomatous nodes from old granulomatous disease. LEFT DARRYN is obscured by the infiltrate abdomen difficult to exclude any additional adenopathy or density here particularly on this noncontrast study, but I favor mainly viewing inflammatory changes partially obscuring the left darryn superiorly Heart. Coronary artery calcifications, with heart normal size. No significant pericardial effusion AORTA: No aneurysm. Mild atherosclerotic calcification. Pulmonary artery of normal anatomy. PLEURAL SPACES: No significant effusion. No evidence of pneumothorax. BONY STRUCTURES: Multiple well healed old bilateral rib fractures. : Left ribs: Old fractures posterior left 9, 8, 7, 6 ribs. Posterior 8th rib fractured 2 [address] posteriorly. Right ribs. Old fractures posterior right 7th and 8th ribs Spine: Degenerative disc changes and spondylosis of the cervical spine most notable C6/7. Anterior marginal osteophytes and mild degenerative disc changes T-spine no acute findings T-spine no lesions developing facet arthropathy most evident lower T-spine LYMPH NODES: No enlarged lymph nodes evident.. UPPER ABDOMEN: Unremarkable with limited imaging here. Imaging barely through the diaphragm through with only very upper uppermost abdomen included . IMPRESSION: 1..Prominent GELY pneumonia. Significant progression of GELY findings since pCXR from November2019 .Large dense area of consolidation with volume loss & air bronchograms-most pronounced periphery GELY (pneumonia/consolidation most extensive throughout Apical Posterior Segment GELY, but also extending into other segments GELY) . 2.. Prominent underlying Emphysematous changes/COPD. Emphysematous
--- NOTE | 2020-01-10 10:23 | PC.NURSE ---
ALBUTEROL INHALER ADMINISTERED IN A CLOSED UNIT WITH DOSING EQUAL TO A NEB PER MD REQUEST.
--- NOTE | 2020-01-10 10:28 | PC.NURSE ---
Pt is with Rad. V/S delayed.
[2020-01-10 10:29] LABS: Basophils # 0.4 K/mm3 (0-0.2); Basophils % 3.2 % (0.1-2.0); Eosinophils % 8.7 % (0.1-12.0); Hematocrit 38.1 % (42.0-52.0); Hemoglobin 12.4 g/dL (14.1-18.0); Lymphocytes # 2.2 K/mm3 (0.7-4.5); Lymphocytes % 19.4 % (10-50); Mean Corpuscular HGB Conc 32.5 g/dL (31.8-35.4); Mean Corpuscular Hemoglobin 27.6 pg (27.0-31.2); Mean Platelet Volume 7.4 fl (7.4-10.4); Monocytes # 0.6 K/mm3 (0.1-1.0); Monocytes % 5.4 % (1.7-9.3); Neutrophils # 7.3 K/mm3 (1.8-7.8); Neutrophils % 63.3 % (37.0-80.0); Platelet Count 350 K/mm3 (142-424); Red Blood Count 4.48 M/mm3 (4.60-6.20); Red Cell Distribution Width 14.7 % (11.5-17.5); White Blood Count 11.5 K/mm3 (4.8-10.8)
[2020-01-10 10:30] LABS: Sodium 136 mmol/L (136-145)
[2020-01-10 10:31] LABS: Chloride 107 mmol/L (98-107)
--- NOTE | 2020-01-10 10:32 | PC.NURSE ---
Pt returned from rad.
[2020-01-10 10:33] LABS: Albumin Level 4.2 g/dl (3.5-5.0); Alkaline Phosphatase 196 U/L (38-126); Bilirubin,Total 0.9 mg/dl (0.2-1.3); Carbon Dioxide 24 mmol/L (22.0-30.0); Globulin 4.2 g/dL (1.3-3.2); Total Protein,Serum 8.4 g/dl (6.3-8.2)
[2020-01-10 10:34] LABS: Calcium 9.4 mg/dl (8.4-10.2); Glucose 156 mg/dl (74-100)
[2020-01-10 10:38] LABS: Alanine Aminotransferase 17 U/L (12-78); Aspartate Amino Transferase 26 U/L (17-59); Blood Urea Nitrogen 11 mg/dl (9-20); Creatinine Clearance Estimated 100 mL/min (50-200); Estimated Glomerular Filt Rate 74 ml/min (>60); GFR (African American) 90 ML/MIN (>60)
[2020-01-10 10:42] LABS: Lactic Acid 0.8 mmol/L (0.7-2.1)
--- NOTE | 2020-01-10 10:47 | PC.NURSE ---
Called lab for Covid test, they advised there was only one person in lab at the moment and they would get to it as soon as possible.
--- NOTE | 2020-01-10 11:31 | PC.NURSE ---
Spoke with Danay in the lab regarding the delay in the COVID test. She stated that the person doing the tests was on second floor collecting things and as soon as she was available she would be down.
[2020-01-10 12:41] LABS: Adenovirus,PCR Not Detected (NotDetected); Bordetella Pertussis Not Detected (NotDetected); Chlamydophila Pneumoniae, PCR Not Detected (NotDetected); Coronavirus 19, PCR Not Detected (NotDetected); Coronavirus 229E Not Detected (NotDetected); Coronavirus NL63 Not Detected (NotDetected); Coronavirus OC43 Not Detected (NotDetected); Coronovirus HKU1,PCR Not Detected (NotDetected); Human Metapneumovirus Not Detected (NotDetected); Influenza A, PCR Not Detected (NotDetected); Influenza AH1, 2009 Not Detected (NotDetected); Influenza AH1, PCR Not Detected (NotDetected); Influenza AH3,PCR Not Detected (NotDetected); Influenza B, PCR Not Detected (NotDetected); Mycoplasma Pneumoniae, PCR Not Detected (NotDected); Parainfluenza 1, PCR Not Detected (NotDetected); Parainfluenza 2, PCR Not Detected (NotDetected); Parainfluenza 3, PCR Not Detected (NotDetected); Parainfluenza 4, PCR Not Detected (NotDetected); Respiratory Syncytial Virus Not Detected (NotDetected); Rhinovirus/Enterovirus Not Detected (NotDetected)
--- NOTE | 2020-01-10 13:46 | PC.NURSE ---
CALLED LAB TO CHECK ON STATUS OF COVID RESULTS AND WAS ADVISED RESULTS SHOULD BE RECEIVED IN APPROX 23 MINS
[2020-01-10 13:50] LABS: ABG Base Excess -3.8 mmol/L (-2.4-2.3); ABG HCO3 22.8 mmhg (22.0-26.0); ABG Oxygen Saturation 98 % (90-100); ABG PCO2 48.6 mmhg (35.0-45.0); ABG PH 7.29 mmol/L (7.35-7.45); ABG TCO2 24.3 mmhg (23-27)
[2020-01-10 13:52] LABS: Allen's Test Acceptable; Oxygen 4L %; Source Right Radial
--- NOTE | 2020-01-10 14:15 | HMH.EDSOB ---
ED Disposition Clinical Impression: CAP (community acquired pneumonia), Obesity (BMI 30.0-34.9), SIRS (systemic inflammatory response syndrome) Disposition: Admitted as Observation Condition on Discharge: Good Instructions: Pneumonia-Adult Referrals: Trae Szymanski MD [Primary Care Provider] - - Critical Care Critical Care Time: No Attestation: On 01/10/20, the high probability of a clinically significant, sudden or life threatening deterioration of the following system(s) required my full and direct attention, intervention and personal management. The time I documented below is in addition to time spent performing reported procedures but includes the following listed in this critical care notation. Medical Decision Making - Medical Records Medical records reviewed: Yes: I reviewed the patient's medical records. - Avelino Inquiry Pt receiving controlled substance: No Vital Signs: 01/10/20 09:45 01/10/20 10:33 01/10/20 11:02 Temperature 98.3 F Temperature Source Oral Pulse Rate [Right Radial] 124 H 123 H 121 H Respiratory Rate 24 24 Blood Pressure [Right Arm] 130/95 H 190/92 H 155/90 H Blood Pressure Mean [Right Arm] 106 124 111 Blood Pressure Source [Right Arm] Automatic Cuff Automatic Cuff Automatic Cuff Blood Pressure Position [Right Arm] Sitting Sitting Supine 02 Sat by Pulse Oximetry 96 97 97 Oxygen Delivery Method Nasal Cannula Nasal Cannula Nasal Cannula Oxygen Flow Rate (LPM) 2 4 4 01/10/20 11:33 01/10/20 12:06 01/10/20 12:47 Temperature Temperature Source Pulse Rate [Right Radial] 121 H 121 H 113 H Respiratory Rate 22 Blood Pressure [Right Arm] 179/104 H 191/104 H 173/90 H Blood Pressure Mean [Right Arm] 129 133 117 Blood Pressure Source [Right Arm] Automatic Cuff Automatic Cuff Automatic Cuff Blood Pressure Position [Right Arm] Sitting Supine Sitting 02 Sat by Pulse Oximetry 95 97 97 Oxygen Delivery Method Nasal Cannula Nasal Cannula Oxygen Flow Rate (LPM) 4 4 01/10/20 14:13 Temperature Temperature Source Pulse Rate [Right Radial] 120 H Respiratory Rate Blood Pressure [Right Arm] 166/90 H Blood Pressure Mean [Right Arm] 115 Blood Pressure Source [Right Arm] Blood Pressure Position [Right Arm] 02 Sat by Pulse Oximetry 97 Oxygen Delivery Method Nasal Cannula Oxygen Flow Rate (LPM) 4 - Lab Data Lab results reviewed: Yes: I reviewed the patient's lab results. Lab Results 01/10/20 09:30: WBC 11.5 H, RBC 4.48 L, Hgb 12.4 L, Hct 38.1 L, MCV 85.0, MCH 27.6, MCHC 32.5, RDW 14.7, Plt Count 350, MPV 7.4, Neut % (Auto) 63.3, Lymph % (Auto) 19.4, [place] % (Auto) 5.4, Eos % (Auto) 8.7, Baso % (Auto) 3.2 H, Neut # (Auto) 7.3, Lymph # (Auto) 2.2, [place] # (Auto) 0.6, Eos # (Auto) 1.0 H, Baso # (Auto) 0.4 H 01/10/20 09:30: Sodium 136, Potassium 4.0, Chloride 107, Carbon Dioxide 24, Anion Gap 9.0, BUN 11, Creatinine 1.00, Estimated Creat Clear 100, Estimated GFR 74, Est GFR ( Amer) 90, Glucose 156 H, Calcium 9.4, Total Bilirubin 0.9, AST 26, ALT 17, Alkaline Phosphatase 196 H, Total Protein 8.4 H, Albumin 4.2, Globulin 4.2 H, Albumin/Globulin Ratio 1.0 L 01/10/20 09:50: Lactate 0.8 01/10/20 11:50: Chlamy pneumoniae PCR Not detected, Adenovirus (PCR) Not detected, B. pertussis DNA (PCR) Not detected, Coronavirus OC43 (PCR) Not detected, Coronavirus HKU1 (PCR) Not detected, Coronavirus 229E (PCR) Not detected, COVID-19 PCR Not detected, Coronavirus NL63 (PCR) Not detected, Human Metapneumovir PCR Not detected, Influenza A (H1) PCR Not detected, Influ A (H1N1/09) PCR Not detected, Influenza A (H3) PCR Not detected, Influenza Type A (PCR) Not detected, Influenza Type B (PCR) Not detected, M. pneumoniae (PCR) Not detected, Parainfluenza 1 (PCR) Not detected, Parainfluenza 2 (PCR) Not detected, Parainfluenza 3 (PCR) Not detected, Parainfluenza 4 (PCR) Not detected, RSV (PCR) Not detected, Entero/Rhino (PCR) Not detected 01/10/20 13:25: Specimen Source Right radial, O2 % 4l, ABG pH 7.29 L, ABG
--- NOTE | 2020-01-10 15:00 | P.CONPHA_ITS ---
[facility] Pharm[facility] VTE Monitoring - Patient Demographics Admission date: 01/10/20 Report Date: 01/10/20 Time: 15:00 Allergies/Adverse Reactions: Patient Allergies prednisone Allergy (Mild, Verified 08/20/19 15:05) swelling ampicillin [AMPICILLIN] Allergy (Unknown, Verified 08/20/19 15:03) Unknown allergy reaction Height: 1.91 m Weight: 99.79 kg Patient Problems: Current Active Problems CAP (community acquired pneumonia) (Acute) Obesity (BMI 30.0-34.9) (Chronic) SIRS (systemic inflammatory response syndrome) (Acute) - VTE Risk Labs: VTE Related Lab Results Hgb 12.4 g/dL (14.1-18.0) L 01/10/20 09:30 Hct 38.1 % (42.0-52.0) L 01/10/20 09:30 Plt Count 350 K/mm3 (142-424) 01/10/20 09:30 BUN 11 mg/dl (9-20) 01/10/20 09:30 Creatinine 1.00 mg/dl (0.66-1.25) 01/10/20 09:30 Estimated Creat Clear 100 mL/min (50-200) 01/10/20 09:30 - Prophylaxis VTE Prophylaxis Ordered?: Yes Types of VTE Prophylaxis: TEDS Knee High Location of Applied Device: Bilateral Lower Extremeties - VTE Diagnosis Confirmed Treatment or plan recommended: Continue Current Treatment
--- NOTE | 2020-01-10 15:24 | PC.NURSE ---
Attempted to call report. Nurse is currently on the other line. Will return call.
--- NOTE | 2020-01-10 15:27 | PC.NURSE ---
Report called to Nuzhat Donis.
--- NOTE | 2020-01-10 17:50 | PC.NURSE ---
Pt was a new admit this shift. Pt is pleasant and cooperative. A&O X4. Pt ambulates throughout the room and to the bathroom independently. Pt is currently on O2 via NC at 4 LPM with sats >94%. Pt was scheduled to receive Methylprednisolone and reported a severe allergy to Prednisone. Pharmacist on-call was contacted (Louie) and this nurse was instructed to contact physician. Dr. Valentine (On-call for Dr. Szymanski) was contacted and this nurse was instructed to administer Methylprednisolone due to the patient receiving this drug previously with no s/s of an allergic reaction. B/P, pulse, and respirations have been elevated. Lung sounds reveal inspiratory rhonchi and expiratory wheezing. Pt complained of SOA X1 this shift when ambulating to the bathroom and returned to baseline with a couple of minutes of sitting back down. Call light within reach. Will continue to monitor.
--- NOTE | 2020-01-10 18:04 | PC.NURSE ---
Rt collected SPT and sent it to lab from second floor at 1730
--- NOTE | 2020-01-10 19:11 | PC.NURSE ---
report given to tashi
--- NOTE | 2020-01-10 22:31 | PC.NURSE ---
Pt's O2 sat on 4 lpm O2 = 98%. Rt decreased O2 to 3 lpm via nc. Rt will decrease FIO2 to 2 lpm t 0200 if sats remain high.
[2020-01-11] VITALS (12 sets, daily range): BP systolic 125–147; BP diastolic 72–91; PULSE 78–120; RESP 12–20; TEMP 36.6–37; O2SAT 94–97
--- NOTE | 2020-01-11 02:28 | PC.NURSE ---
Pt's O2 sat on 3 lpm O2 = 97%. Rt decreased O2 to 2 lpm and notified RNGenny of change.
--- NOTE | 2020-01-11 04:55 | PC.NURSE ---
Pt awake, sitting on side of bed on phone all shift. Pt reported, Catching up with old friends on fb, some old coon hunting friends. Expiratory Rhonchi detected in lower lung romero. Pt has productive cough, coughing quite a bit this shift. Noticed bloody tissues in the trash, pt reported he thought most of it was from his sinuses not his lungs. Ask pt to alert if he has any bloody sputum, pt voiced understanding. Remains A&O x4, pleasant and cooperative with POC. Both IV's patent and saline locked. Pt walks in the room with noted steady gait. Uses urinal with clear, yellow/jaime urine. Remained safe, nothing acute this shift, call light w/i reach, monitoring continues.
[2020-01-11 06:42] LABS: MANUAL DIFFERENTIAL MANUAL DIFFERENTIAL (MANUAL DIFF)
[2020-01-11 06:50] LABS: Basophils % 0.4 % (0.1-2.0); Eosinophils % 0.3 % (0.1-12.0); Hematocrit 35.5 % (42.0-52.0); Hemoglobin 11.9 g/dL (14.1-18.0); Lymphocytes # 0.5 K/mm3 (0.7-4.5); Mean Corpuscular HGB Conc 33.5 g/dL (31.8-35.4); Mean Corpuscular Hemoglobin 27.4 pg (27.0-31.2); Mean Corpuscular Volume 81.6 fl (80-94); Mean Platelet Volume 8.1 fl (7.4-10.4); Monocytes # 0.1 K/mm3 (0.1-1.0); Monocytes % 1.4 % (1.7-9.3); Neutrophils # 5.2 K/mm3 (1.8-7.8); Neutrophils % 88.8 % (37.0-80.0); Platelet Count 288 K/mm3 (142-424); Red Blood Count 4.35 M/mm3 (4.60-6.20); Red Cell Distribution Width 14.6 % (11.5-17.5); White Blood Count 5.9 K/mm3 (4.8-10.8)
--- NOTE | 2020-01-11 08:28 | HMH.PHAINT ---
HOME MEDICATION RECONCILIATION COMPLETED USING LIST FROM HOME PHARMACY AND PT INTERVIEW.
--- NOTE | 2020-01-11 08:35 | HMH.HP ---
*Admission Date: 01/10/20 *Chief complaint: SOA, cough, Fever *History of present illness: Mr. Henry is a 69-year-old male with history of COPD who presents with several days to a week of worsening shortness of breath and development of fever over the past week. Initially presented to the ER via EMS due to worsening dyspnea and feeling poorly. Unable to breath well on continuous O2, Nebs, and inhalers at home. He is new to our practice after his last admission. He has been on supplemental oxygen usually at night since then with the use of Anoro during the day and nebs as needed though he has not needed them very often. Symptoms however have caused him to use his nebulizer regularly over the past week. [place] his Anoro was helping but wears off early. In the ER he was found to have hypoxia, leukocytosis, and a slight respiratory acidosis. Patient admitted for pneumonia. PSI score on admission of 108 making him class IV risk. Started on IV antibiotics and steroids. this is his third episode of pneumonia in 6 months. On assessment this morning, patient states he is feeling somewhat better, afebrile, thinks the steroids helped. Is sitting up at bedside on his phone Denies nausea, vomiting. Complains of some mild chest pain on the right side. Prior to admission did complain of fever and chills, productive cough, malaise. [facility] History I have reviewed the patient's past medical history: Yes Medical History: Reports:: Chronic Obstructive Pulmonary Disease (COPD), Hyperlipidemia, Hypertension Denies:: Cancer, Diabetes Mellitus Type 1, Diabetes Mellitus Type 2, MRSA *Have you ever received a pneumonia vaccine?: Yes *Have you received a flu vaccine this season?: Yes Other Medical History: Reports: Arthritis, Hypothyroidism Laterality Cases: Left: Arthroscopy Shoulder Other Surgeries: Yes: Colonoscopy, Hernia Repair (X2), Other Amputation: No Fractures: Yes (LEFT ARM AND RIGHT FOOT) - *Social History Educational Level: Completed High School Smoking Status: Former smoker Tobacco Type: cigarettes # Packs/Day (cigarettes): 1 #Yrs smoked (if former smoker): 52 Alcohol Intake: former Substance Use Type: denies use *Occupational Status:: retired Housing: house Household Members: spouse *Travel in the last 8 weeks: None Family Hx:: Cancer Review of Systems - Review of Systems Review of systems:: pertinent systems reviewed and negative unless documented below (14 point review of systems performed, pertinent positives and negatives as per HPI) Meds Home Medications Medication Instructions Recorded Confirmed Type Amlodipine Besylate [Amlodipine 5 mg PO DAILY 08/11/19 01/10/20 History 5mg tab] Atorvastatin Calcium [Atorvastatin 40 mg PO HS 08/11/19 01/10/20 History 40mg Tab] Furosemide [Furosemide 40MG tAB] 40 mg PO DAILY 08/11/19 01/10/20 History Levothyroxine Sodium 50 mcg PO DAILY 08/11/19 01/10/20 History [Levothyroxine 50mcg (0.05mg) Tab] Losartan Potassium 100 mg PO HS 08/11/19 01/10/20 History Ipratropium/Albuterol Sulfate 3 ml IH QIDP PRN 30 Days #120 neb 12/04/19 01/10/20 Rx [Duoneb 3mL neb] Anoro Ellipta 62.5-25 Mcg INH 1 puff IH DAILY 01/10/20 01/10/20 History Allergies Allergy/AdvReac Type Severity Reaction Status Date / Time prednisone Allergy Mild swelling Verified 01/10/20 16:17 ampicillin [AMPICILLIN] Allergy Unknown Unknown Verified 01/10/20 16:17 allergy reaction Exam Vital signs and Labs for Last 24 Hours: Temp Pulse Resp BP Pulse Ox 98.3 F 107 H 20 147/84 H 96 01/11/20 08:00 01/11/20 08:00 01/11/20 08:00 01/11/20 08:00 01/11/20 08:00 Laboratory Results - last 24 hr 01/10/20 09:30: WBC 11.5 H, RBC 4.48 L, Hgb 12.4 L, Hct 38.1 L, MCV 85.0, MCH 27.6, MCHC 32.5, RDW 14.7, Plt Count 350, MPV 7.4, Neut % (Auto) 63.3, Lymph % (Auto) 19.4, [place] % (Auto) 5.4, Eos % (Auto) 8.7, Baso % (Auto) 3.2 H, Neut # (Auto) 7.3, Lymph # (Auto) 2.2, [place] # (Auto) 0.6, Eos #
[2020-01-11 09:52] LABS: Lymphocytes % 10 % (10-50); Neutrophils % 90 % (42-76); Platelet Estimate Normal; RBC Morphology Normal; Total Cells Counted 100
[2020-01-11 11:26] LABS: Anion Gap 9.9 mEq/L (5-15); Blood Urea Nitrogen 17 mg/dl (9-20); Calcium 9.7 mg/dl (8.4-10.2); Carbon Dioxide 25 mmol/L (22.0-30.0); Chloride 103 mmol/L (98-107); Creatinine Clearance Estimated 94 mL/min (50-200); Estimated Glomerular Filt Rate 96 ml/min (>60); GFR (African American) 116 ML/MIN (>60); Glucose 175 mg/dl (74-100); Potassium 3.9 mmoL/L (3.5-5.1); Sodium 134 mmol/L (136-145)
--- NOTE | 2020-01-11 12:12 | PC.NURSE ---
Pt remains on 2L NC with O2 sats running mid-upper 90's. Wheezes noted to RUL. He was instructed on use of incentive spirometer with a proper return demonstration afterwards. He has ambulated to the bathroom independently with no reports of distress. Sputum collected on previous shift and sent to lab. Tolerating diet well, appetite OK. No complaints verbalized. Will continue to monitor.
[2020-01-12] VITALS (9 sets, daily range): BP systolic 104–138; BP diastolic 59–74; PULSE 88–115; RESP 18–20; TEMP 36.7–36.8; O2SAT 90–94; BMI 29.0
--- NOTE | 2020-01-12 04:42 | PC.NURSE ---
Lung romero have changed from previous night's care. Upper right posterior field found inspiratory wheeze with rhonchi with exhale. Bilateral bases are diminished. Pt finally sleep tonight, he was up all night the previous night and reported he didn't sleep during the day either. Noted pt twitching and jerking during sleep, unsure if this is his normal. Vital signs are stable, however pt remains tachy. Only acute issue was pt complaining of left back pain. Phoned Dr Jaramillo who gave order for Tylenol and Kpad. Pt reported he doesn't take much pain medication, It wouldn't take much to knock me out. Following administering Tylenol and getting Kpad going, pt fell asleep. Afebrile thoughout the night, presently resting, participates in POC, appreciative of care, call light w/i reach, monitoring continues.
--- NOTE | 2020-01-12 05:48 | PC.NURSE ---
Pt awakened this am with long periods of coughing. In to check, pt reports, I'm coughing that stuff up, no hemoptysis identified. Pt denied needing anything, monitoring continues.
--- NOTE | 2020-01-12 08:20 | HMH.DCSUM ---
General - General Admission date:: 01/10/20 Discharge date: 01/12/20 HPI HPI: Mr. Henry is a 69-year-old male with history of COPD who presents with several days to a week of worsening shortness of breath and development of fever over the past week. Initially presented to the ER via EMS due to worsening dyspnea and feeling poorly. Unable to breath well on continuous O2, Nebs, and inhalers at home. He is new to our practice after his last admission. He has been on supplemental oxygen usually at night since then with the use of Anoro during the day and nebs as needed though he has not needed them very often. Symptoms however have caused him to use his nebulizer regularly over the past week. [place] his Anoro was helping but wears off early. In the ER he was found to have hypoxia, leukocytosis, and a slight respiratory acidosis. Patient admitted for pneumonia. PSI score on admission of 108 making him class IV risk. Started on IV antibiotics and steroids. this is his third episode of pneumonia in 6 months. On assessment this morning, patient states he is feeling somewhat better, afebrile, thinks the steroids helped. Is sitting up at bedside on his phone Denies nausea, vomiting. Complains of some mild chest pain on the right side. Prior to admission did complain of fever and chills, productive cough, malaise. Hospital Course Hospital Course: Patient was admitted, found to have significant left upper lobe infiltrate, right upper lobe infiltrate from prior pneumonia episode had resolved. CT scanning confirmed dense pneumonic infiltrate but no evidence of mass or bronchial obstruction. Patient responded very nicely to IV levofloxacin and IV steroids. Improved breathing, improved oxygen requirement and improved appetite over the next 48 hours. This morning he was doing well, back to his baseline 2 L, up and about the room, doing his own activities of daily living. Lung exam is also improved. Plan will be to discharge patient with levofloxacin, oral prednisone, he will keep his appointment on Friday in the office. We will make sure he has nebulizer refills at home. In the office we will schedule follow-up chest x-ray. Objective Vital signs: Temp Pulse Resp BP Pulse Ox 98.0 F 105 H 18 104/59 L 94 L 01/12/20 03:50 01/12/20 06:06 01/12/20 03:50 01/12/20 03:50 01/12/20 06:06 Narrative: Patient is alert, oriented, no focal neurologic deficits. ENT exam clear. Lungs have excellent air movement. Minimal crackles in the left upper lung field but good air movement without wheezing. Heart rate regular. Abdomen soft. No clubbing, cyanosis or edema. Skin without rashes. Results Labs on day of discharge: Labs from last 24 hours 01/11/20 01/11/20 06:23 06:23 Total Counted 100 Neutrophils % (Manual) 90 H Lymphocytes % (Manual) 10 Platelet Estimate Normal RBC Morphology Normal Sodium 134 L Potassium 3.9 Chloride 103 Carbon Dioxide 25 Anion Gap 9.9 BUN 17 D Creatinine 0.80 Estimated Creat Clear 94 Estimated GFR 96 Est GFR ( Amer) 116 D Glucose 175 H Calcium 9.7 Preliminary micro results at discharge 01/10/20 17:20 Sputum Culture - Preliminary Sputum - Expectorated Sputum DS: Diagnosis - Discharge Diagnosis (1) Acute respiratory failure with hypoxia and hypercarbia Status: Resolved (2) Sepsis Status: Resolved (3) CAP (community acquired pneumonia) Status: Acute (4) COPD (chronic obstructive pulmonary disease) Status: Chronic (5) Hypothyroid Status: Chronic (6) Hypertension Status: Chronic Discharge Plan - Patient Discharge Instructions ACTIVITY: Continue current activity DIET: continue same diet Patient Instructions: DI for Pneumonia -- Adult - Follow up Plan Follow up with: Trae Szymanski MD [Primary Care Provider] - 01/17/20 Disposition: Home, Self-Intermediate Medications
--- NOTE | 2020-01-12 10:00 | HMH.PHAINT ---
DISCHARGE COUNSELING COMPLETED. PATIENT IS ALLERGIC TO PREDNISONE, CALLED DR PEREZ AND HAD IT SWITCHED TO DEXAMETHASONE. PRESCRIPTIONS WAS SENT TO [facility] AND PREDNISONE WAS CANCELLED.
--- NOTE | 2020-01-12 10:40 | SW/DCPLANNER ---
PATIENT DISCHARGING HOME TODAY WITH NO HOME HEALTH SERVICES NEEDED AT THIS TIME....
== END 2020-01-12 11:40 | disposition home or self-care (01) | DRG 193 ==
LOC: ER 14:19 → 2ND 15:29
PROVIDERS: Admitting Provider Internal Medicine Adolescent Medicine; Emergency Provider Family Medicine; PCP Internal Medicine Adolescent Medicine; Visit Provider Internal Medicine Adolescent Medicine
DX: J18.9 Pneumonia, unspecified organism (principal); J96.01 Acute respiratory failure with hypoxia; J96.02 Acute respiratory failure with hypercapnia; J44.9 Chronic obstructive pulmonary disease, unspecified; Z99.81 Dependence on supplemental oxygen; E03.9 Hypothyroidism, unspecified; I10 Essential (primary) hypertension; E78.5 Hyperlipidemia, unspecified; Z87.01 Personal history of pneumonia (recurrent); Z79.899 Other long term (current) drug therapy; Z88.8 Allergy status to other drugs, medicaments and biological substances; Z88.0 Allergy status to penicillin
CPT/HCPCS: 36415; 71250; 80048; 80053; 82803; 83605; 85007; 85014; 85018; 85025; 85048; 85049; 87040; 87070; 87205; 87581; 87633; 87798; 93005; 94640; 94760; 94761; 96365; 96374; 99285; J1956

== ENCOUNTER → 2021-01-10 08:07 | Outpatient (CLI) | payer MEDICARE, SELFPAY ==
--- NOTE | 2021-01-10 08:11 | CT_ITS ---
PROCEDURE: CT LUNG SCREENING CLINICAL INDICATION: H/O NICOTINE DEPENDENCE Former smoker Quit smoking 5 years ago 50 pack year smoking history COMPARISON: CT CT CHEST WO/W CON from 10/19/[address] CHEST WO CON from 01/10/2020 TECHNIQUE: The exam was performed on a [employer] Light Speed [address] scanner using 2.90 mGy CTDI. A low dose helical CT CHEST was performed on a multi-detector scanner. All CT scans at the facility use one or more dose reduction, viz: automated exposure control, ma/kV adjustment per patient size (including targeted exams where dose is matched to indication, i.e. head), or iterative reconstruction technique. The LDCT was performed in a facility that meets the criteria for the screening program. Data regarding this exam was submitted to ACR which is an approved registry. The order for this exam indicates that it came as a result of a lung cancer screening counseling shard decision-making visit that included all the elements required of such a visit including smoking cessation. The radiologist interpreting this exam meets the CMS criteria for the LDCT lung cancer screening program. The exam is reported using the Lung-RADS classification scale and reported to the ACR registry. NOTE: This study was performed for the specific purposes of lung cancer screening and is not an alternative to diagnostic chest CT. RADIATION DOSE: CTDI vol(CT dose Index-volume) = 2.90mG DLP (Dose Length Product) = 106.29 mGcm FINDINGS: Panlobular emphysematous change. Postinflammatory scarring is present in both upper lobes more extensive on the left with left apical air bronchograms. Left upper lobe pneumonia has shown moderate improvement. These areas of increased density from the scarring could easily obscure a pulmonary nodule. No suspicious pulmonary nodules are identified. There are stable small bilateral nodular opacities. Centrilobular emphysematous changes are also present. Fibrotic changes are present in the left lower lobe similar to the previous exam. There is a moderate-sized hiatal hernia. There are old bilateral rib fractures. Coronary artery calcifications are noted as well small mediastinal and axillary lymph nodes IMPRESSION: Lung-RADS Category 3 Probably Benign Follow-up: [address] Chest without and with contrast. Suggest [address] without and with contrast to confirm stability of the left upper lobe volume loss with air bronchograms. Dictated by: Enrique Medina MD 01/22/2021 14:03 Enrique Medina MD in [place] 01/22/2021 14:03
== END ==
PROVIDERS: PCP Internal Medicine Adolescent Medicine; Visit Provider Internal Medicine Adolescent Medicine
DX: Z87.891 Personal history of nicotine dependence (principal); Z12.2 Encounter for screening for malignant neoplasm of respiratory organs
CPT/HCPCS: 71271

== ENCOUNTER → 2021-07-30 09:38 | Outpatient (CLI) | payer MEDICARE, SELFPAY ==
--- NOTE | 2021-07-30 10:05 | CT_ITS ---
PROCEDURE INFORMATION: Exam: CT Chest Without and With Contrast; Diagnostic Exam date and time: 07/30/2021 10:05 AM Age: 71 years old Clinical indication: Condition or disease; Lung condition and disease; Patient HX: Copd PT states no HX of lung surgeries TECHNIQUE: Imaging protocol: Diagnostic computed tomography of the chest without and with contrast. Radiation optimization: All CT scans at this facility use at least one of these dose optimization techniques: automated exposure control; mA and/or kV adjustment per patient size (includes targeted exams where dose is matched to clinical indication); or iterative reconstruction. Contrast material: ISOVUE; Contrast volume: 75 ml; Contrast route: IV; COMPARISON: CT CHEST WO CON 01/10/2020 10:20 AM FINDINGS: Lungs: No suspicious pulmonary nodules are seen. Background of advanced destructive emphysema. Similar scarring with some architectural distortion in the bilateral upper lobes. The previously seen pneumonia in the left upper lobe has improved. No new focal airspace disease is seen. Pleural spaces: Unremarkable. No pneumothorax. No pleural effusion. Heart: Mild coronary artery calcification. Aorta: Unremarkable. No aortic aneurysm. Lymph nodes: Calcified right hilar lymph nodes. Diaphragm: Large hiatal hernia. Liver: Calcified hepatic granulomas. Spleen: Calcified splenic granulomas. Bones/joints: Remote bilateral rib fractures. Soft tissues: Within normal limits. IMPRESSION: Background of advanced destructive emphysema with scarring and architectural distortion in the bilateral upper lobes. No new superimposed focal airspace disease or other acute findings.
[2021-07-30 10:21] LABS: Blood Urea Nitrogen 15 mg/dl (9-20); Estimated Glomerular Filt Rate 83 ml/min (>60); GFR (African American) 101 ML/MIN (>60)
== END ==
PROVIDERS: PCP Internal Medicine Adolescent Medicine; Visit Provider Internal Medicine Adolescent Medicine
DX: J44.9 Chronic obstructive pulmonary disease, unspecified (principal)
CPT/HCPCS: 36415; 71270; 82565; 84520; Q9967

== ENCOUNTER → 2021-08-20 20:12 | Outpatient (CLI) | payer MEDICARE, SELFPAY ==
[2021-08-20 21:04] LABS: Chloride 105 mmol/L (98-107); Potassium 4.4 mmoL/L (3.5-5.1); Sodium 138 mmol/L (136-145)
[2021-08-20 21:07] LABS: Alanine Aminotransferase 12 U/L (12-78); Albumin Level 4.2 g/dl (3.5-5.0); Albumin/Globulin Ratio 1.5 (1.1-1.8); Alkaline Phosphatase 105 U/L (38-126); Anion Gap 11.4 mEq/L (5-15); Aspartate Amino Transferase 20 U/L (17-59); Bilirubin,Total 0.5 mg/dl (0.2-1.3); Blood Urea Nitrogen 14 mg/dl (9-20); Carbon Dioxide 26 mmol/L (22.0-30.0); Estimated Glomerular Filt Rate 83 ml/min (>60); GFR (African American) 101 ML/MIN (>60); Globulin 2.8 g/dL (1.3-3.2)
[2021-08-20 21:08] LABS: Glucose 107 mg/dl (74-100)
[2021-08-20 21:38] LABS: Thyroid Stimulating Hormone 2.59 uIU/mL (0.465-4.68)
== END ==
PROVIDERS: Visit Provider Internal Medicine Adolescent Medicine
DX: I10 Essential (primary) hypertension (principal); E78.2 Mixed hyperlipidemia; E03.9 Hypothyroidism, unspecified
CPT/HCPCS: 80053; 84443

== ENCOUNTER 2023-09-19 16:08 | Emergency (ER) | payer OTHER, MEDICARE, SELFPAY ==
--- NOTE | 2023-09-19 16:13 | PC.NURSE ---
Dr. Stone at [facility] for pt eval
[2023-09-19 16:17] VITALS: BP 123/74; PULSE 102; RESP 21; O2SAT 96; BMI 31.1
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
--- NOTE | 2023-09-19 16:24 | ECG_ITS ---
APPROVED REPORT Exam: Resting ECG HR:103 bpm ECG Measurements Heart Rate 103 AXES RI 188 P 44 QRSd 105 QRS -48 QT 351 T 45 QTc 411 Conclusion SINUS TACHYCARDIA WITH FREQUENT VENTRICULAR PREMATURE COMPLEXES PATTERN CONSISTENT WITH PULMONARY DISEASE LEFT ANTERIOR FASCICULAR BLOCK [QRS AXIS <= -45, QR IN I, RS IN II] ABNORMAL ECG UNCONFIRMED REPORT Electronically signed by : Sonu Jaramillo MD 09/20/2023 21:17:49
[2023-09-19 16:30] VITALS: BP 91/65; PULSE 96; RESP 21; O2SAT 96
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
--- NOTE | 2023-09-19 16:40 | PC.NURSE ---
ATTEMPTED TO CONTACT PT'S SON, MESSAGE LEFT
[2023-09-19] MEDS: KETOROLAC 30MG/ML VIAL 15 MG IV (16:41)
[2023-09-19] MEDS: ACETAMINOPHEN 1,000MG/100ML VIAL 1000 MG IV (16:41)
[2023-09-19] MEDS: TET/DIPHTH/PERT-ADULT 0.5ML SYRINGE 0.5 ML IM (16:41)
[2023-09-19] MEDS: LACTATED RINGERS 1000ML 1,000 ML 999 ML IV (16:41)
[2023-09-19 16:56] LABS: Basophils # 0.1 K/mm3 (0-0.2); Basophils % 0.5 % (0.1-2.0); Eosinophils # 0.2 K/mm3 (0.0-0.4); Eosinophils % 1.3 % (0.1-12.0); Hematocrit 34.2 % (42.0-52.0); Lymphocytes % 8.6 % (10-50); Mean Corpuscular HGB Conc 32.3 g/dL (31.8-35.4); Mean Corpuscular Hemoglobin 23.5 pg (27.0-31.2); Mean Corpuscular Volume 72.8 fl (80-94); Mean Platelet Volume 8.1 fl (7.4-10.4); Monocytes # 0.6 K/mm3 (0.1-1.0); Monocytes % 4.9 % (1.7-9.3); Neutrophils # 10.2 K/mm3 (1.8-7.8); Neutrophils % 84.7 % (37.0-80.0); Platelet Count 274 K/mm3 (142-424); White Blood Count 12.1 K/mm3 (4.8-10.8)
[2023-09-19 16:58] LABS: Chloride 104 mmol/L (98-107)
[2023-09-19 16:59] LABS: Potassium 3.6 mmoL/L (3.5-5.1); Sodium 135 mmol/L (136-145)
[2023-09-19 17:01] VITALS: BP 130/68; RESP 18; O2SAT 99
[2023-09-19 17:01] LABS: Alanine Aminotransferase 22 U/L (12-78); Albumin Level 4.1 g/dl (3.5-5.0); Albumin/Globulin Ratio 1.3 (1.1-1.8); Alkaline Phosphatase 137 U/L (38-126); Anion Gap 9.6 mEq/L (5-15); Aspartate Amino Transferase 36 U/L (17-59); Bilirubin,Total 0.8 mg/dl (0.2-1.3); Blood Urea Nitrogen 31 mg/dl (9-20); Carbon Dioxide 25 mmol/L (22.0-30.0); Creatinine Clearance Estimated 82 mL/min (50-200); Estimated Glomerular Filt Rate 60 ml/min (>60); GFR (African American) 72 ML/MIN (>60); Globulin 3.2 g/dL (1.3-3.2); Lipase 133 U/L (23-300); Total Protein,Serum 7.3 g/dl (6.3-8.2)
[2023-09-19 17:02] LABS: Calcium 9.2 mg/dl (8.4-10.2); Glucose 114 mg/dl (74-100)
[2023-09-19 17:05] LABS: INR 0.99 (0.9-1.1); Prothrombin Time 10.7 seconds (10.1-12.5)
[2023-09-19 17:16] LABS: Troponin I < 0.01 ng/ml (0.00-0.034)
[2023-09-19 17:19] LABS: Activated Partial Thrombo Time 22.3 seconds (22.8-30.6)
[2023-09-19] MEDS: IOPAMIDOL-370 (76%);100ML BOTTLE 200 ML IV (17:52)
[2023-09-19] MEDS: SODIUM CHLORIDE 0.9% 10ML SYR (RAD ONLY) 10 ML IV (17:52)
[2023-09-19] MEDS: 0.9 % SODIUM CHLORIDE 50 ML VIAL 100 ML IV (17:52)
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
[2023-09-19] MEDS: CEFAZOLIN 2GM VIAL 2 GM IV (18:08)
[2023-09-19 18:20] VITALS: BP 145/92; PULSE 107; RESP 21; O2SAT 93
[2023-09-19 18:30] VITALS: BP 124/83; PULSE 67; RESP 19; O2SAT 96
--- NOTE | 2023-09-19 18:33 | PC.NURSE ---
Addendum entered by Nataliia Sanders RN 09/19/23 18:39: Pt is now in a soft Ccollar per MD. Original Note: Head block placed on pt per MD after the C collar placement was too uncomfortable to pt.
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
--- NOTE | 2023-09-19 18:48 | PC.NURSE ---
Dr. Stone at to splint injury
--- NOTE | 2023-09-19 18:49 | PC.NURSE ---
Attempted to call pts son and spouse with pt update. Calls went to and VM was full.
--- NOTE | 2023-09-19 18:49 | PC.NURSE ---
Dr. Stone speaking with Dr. Beatty at [facility]
--- NOTE | 2023-09-19 18:57 | PC.NURSE ---
Report called to [facility] ED to [facility]
--- NOTE | 2023-09-19 19:07 | PC.NURSE ---
Juan Rea called and gave the sun an update of patient condition also, EMS contacted for transfer.
--- NOTE | 2023-09-19 19:07 | PC.NURSE ---
spoke with pt's son and gave updated on transfer to [facility]
[2023-09-19] MEDS: ONDANSETRON 4MG/2ML VIAL 4 MG IV (19:10)
[2023-09-19] MEDS: MORPHINE 4MG/ML SYRINGE 4 MG IV (19:11)
[2023-09-19 19:57] VITALS: BP 137/80; PULSE 105; RESP 18; TEMP 36.7; O2SAT 90
== END 2023-09-19 19:58 | disposition short-term general hospital (02) ==
PROVIDERS: Emergency Provider Emergency Medicine; PCP Internal Medicine Adolescent Medicine
DX: S12.501A Unspecified nondisplaced fracture of sixth cervical vertebra, initial encounter for closed fracture (principal); S82.209B Unspecified fracture of shaft of unspecified tibia, initial encounter for open fracture type I or II; R07.89 Other chest pain; V47.0XXA Car driver injured in collision with fixed or stationary object in nontraffic accident, initial encounter; E78.5 Hyperlipidemia, unspecified
CPT/HCPCS: 12002; 29515; 70450; 70496; 70498; 71045; 71275; 72125; 72128; 72131; 72170; 73560; 73590; 73610; 74174; 80053; 83690; 84484; 85025; 85610; 85730; 90471; 90715; 93005; 96361; 96374; 96375; 99291; J0131; J0690; J2405; Q9967

== ENCOUNTER 2024-01-08 16:04 | Emergency (ER) | payer MEDICARE, SELFPAY ==
[2024-01-08 16:06] VITALS: BP 93/45; PULSE 97; RESP 20; TEMP 36.7; O2SAT 98; BMI 26.6
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
--- NOTE | 2024-01-08 16:20 | PC.NURSE ---
Juan GRANADO at [facility] for pt eval
--- NOTE | 2024-01-08 16:30 | CT_ITS ---
PROCEDURE INFORMATION: Exam: CT Abdomen And Pelvis With Contrast Exam date and time: 01/08/2024 5:49 PM Age: 73 years old Clinical indication: Other: Bilateral flank pain TECHNIQUE: Imaging protocol: Computed tomography of the abdomen and pelvis with contrast. Radiation optimization: All CT scans at this facility use at least one of these dose optimization techniques: automated exposure control; mA and/or kV adjustment per patient size (includes targeted exams where dose is matched to clinical indication); or iterative reconstruction. Contrast material: ISOVUE; Contrast volume: 75 ml; Contrast route: IV; COMPARISON: CT ANGIO ABDOMEN PELVIS 09/19/2023 5:31 PM FINDINGS: Lungs: Moderate centrilobular emphysematous changes are present. There are multiple punctate pulmonary parenchymal calcifications, consistent with remote granulomatous organism exposure. Nonspecific trace left basilar streaky opacities suggest atelectasis or parenchymal scarring. Pleural spaces: There are no pleural effusions. Heart: The visualized portions of the heart are unremarkable. There is no evidence of pericardial fluid collections. Diaphragm: A moderate hiatal hernia is present. There is mild elevation of the left hemidiaphragm. Liver: There is diffuse decrease in hepatic/liver parenchymal density consistent with fatty infiltration. The liver demonstrates punctate calcifications consistent with remote granulomatous organism exposure. Gallbladder and bile ducts: The gallbladder is normal. Pancreas: The pancreas is normal. Spleen: The spleen demonstrates punctate calcifications, consistent with remote granulomatous organism exposure. Adrenal glands: The adrenal glands are normal. Kidneys and ureters: Normal. No hydronephrosis. Stomach and bowel: Aside from the hiatal hernia, the stomach is within range of normal. There is mild gaseous distension of the 3rd portion of the duodenum which resolves as the duodenum crosses across midline. The duodenum is otherwise within range of normal. Lack of gastrointestinal contrast limits evaluation of bowel. Unopacified loops of small bowel within range of normal. Moderate diverticulosis is present in the distal colon. There is no evidence of colitis/diverticulitis. Appendix: No evidence of appendicitis. Intraperitoneal space: No evidence of intraperitoneal free air. No significant free fluid. Vasculature: The aorta and iliac arteries demonstrate moderate atherosclerotic calcification. No abdominal aortic aneurysm. Lymph nodes: There are a few mildly prominent nonspecific inguinal lymph nodes. A left inguinal lymph node measures 16 mm and a right inguinal lymph node measures 13 mm. Urinary bladder: The bladder is normal. Reproductive: The prostate and seminal vesicles are normal. Bones/joints: There are mild degenerative changes of the symphyseal pubic joint. There is a mild convex right lumbar scoliosis. There is mild anterior spondylolisthesis of L5-S1. A remote rib fractures present on the left involving the posterior 9th rib. There are mild degenerative changes of the hip joints. Soft tissues: There are small stable fat containing bilateral inguinal hernias. No significant soft tissue edema. There is a small fat-containing umbilical hernia. IMPRESSION: 1. Moderate colonic diverticulosis without evidence of diverticulitis. 2. Moderate hiatal hernia. 3. Moderate emphysematous changes. 4. Fatty hepatic infiltration. 5. Mild gaseous distension of the third portion of the duodenum which resolves as the duodenum crosses the midline of uncertain clinical significance. 6. A few mildly prominent nonspecific stable inguinal lymph nodes.
[2024-01-08] MEDS: LACTATED RINGERS 1000ML 1,000 ML 999 ML IV (16:39)
[2024-01-08] MEDS: ACETAMINOPHEN 1,000MG/100ML VIAL 1000 MG IV (16:39)
[2024-01-08 16:51] LABS: Basophils % 0.4 % (0.1-2.0); Eosinophils # 0.2 K/mm3 (0.0-0.4); Eosinophils % 2.7 % (0.1-12.0); Hematocrit 27.6 % (42.0-52.0); Hemoglobin 8.8 g/dL (14.1-18.0); Lymphocytes # 0.5 K/mm3 (0.7-4.5); Lymphocytes % 7.5 % (10-50); Mean Corpuscular Hemoglobin 25.3 pg (27.0-31.2); Mean Corpuscular Volume 78.9 fl (80-94); Monocytes # 0.3 K/mm3 (0.1-1.0); Monocytes % 5.1 % (1.7-9.3); Neutrophils % 84.3 % (37.0-80.0); Platelet Count 284 K/mm3 (142-424); Red Blood Count 3.49 M/mm3 (4.60-6.20); Red Cell Distribution Width 18.9 % (11.5-17.5)
[2024-01-08 16:57] LABS: Chloride 112 mmol/L (98-107); Potassium 5.3 mmoL/L (3.5-5.1); Sodium 138 mmol/L (136-145)
[2024-01-08 17:00] LABS: Albumin/Globulin Ratio 1.1 (1.1-1.8); Calcium 9.6 mg/dl (8.4-10.2); Globulin 3.5 g/dL (1.3-3.2); Glucose 101 mg/dl (74-100); Total Protein,Serum 7.5 g/dl (6.3-8.2)
[2024-01-08 17:01] LABS: Alanine Aminotransferase 24 U/L (12-78); Alkaline Phosphatase 116 U/L (38-126); Anion Gap 15.3 mEq/L (5-15); Aspartate Amino Transferase 24 U/L (17-59); Bilirubin,Total 0.5 mg/dl (0.2-1.3); Carbon Dioxide 16 mmol/L (22.0-30.0); Creatinine Clearance Estimated 45 mL/min (50-200); Estimated Glomerular Filt Rate 33 ml/min (>60); GFR (African American) 40 ML/MIN (>60)
[2024-01-08 17:03] LABS: INR 1.01 (0.9-1.1); Prothrombin Time 10.9 seconds (10.1-12.5)
[2024-01-08 17:13] LABS: Magnesium 1.8 mg/dl (1.6-2.3)
[2024-01-08 17:14] LABS: Blood Urea Nitrogen 152 mg/dl (9-20)
[2024-01-08] MEDS: OXYCODONE 5MG IMMEDIATE RELEASE TABLET 5 MG PO (17:14)
[2024-01-08] MEDS: SODIUM CHLORIDE 0.9% 10ML SYR (RAD ONLY) 10 ML IV (17:57)
[2024-01-08] MEDS: IOPAMIDOL-370 (76%);100ML BOTTLE 75 ML IV (17:57)
--- NOTE | 2024-01-08 18:05 | PC.NURSE ---
PT RETURNED FROM CT, DR MI AT BEDSIDE
--- NOTE | 2024-01-08 18:14 | PC.NURSE ---
Called [facility] to see about getting this pt transferred per Dr Harvey. [facility] advised that they would page the doctor and give us a call back
--- NOTE | 2024-01-08 18:18 | PC.NURSE ---
RT notified of VBG
[2024-01-08 18:21] LABS: Creatine Kinase 161 U/L (55-170)
--- NOTE | 2024-01-08 18:23 | PC.NURSE ---
Dr. Harvey at [facility]
[2024-01-08 18:25] LABS: Lactate Venous 1.8 mmol/L (0.4-2.0); VBG Base Excess -12.6 mmol/L (-2.4-2.3); VBG HCO3 14.8 mmol/L (23-30); VBG Oxygen Saturation 87.2 % (50-70); VBG PCO2 35.3 mmol/L (35-51); VBG PH 7.24 mmol/L (7.31-7.41); VBG PO2 60.6 mmol/L (28-40); VBG Total CO2 15.9 mmol/L (23-27)
[2024-01-08] MEDS: MORPHINE 4MG/ML SYRINGE 4 MG IV ×2 (18:35→19:59)
--- NOTE | 2024-01-08 18:40 | PC.NURSE ---
[facility] called back and is speaking with KITA Jean Baptiste
[2024-01-08 18:44] VITALS: BP 84/67; PULSE 93; O2SAT 97
[2024-01-08 19:00] VITALS: BP 80/54; PULSE 98; O2SAT 95
[2024-01-08 19:02] LABS: Occult Blood,Stool Positive (Negative)
[2024-01-08 19:31] VITALS: BP 107/50; PULSE 95; O2SAT 96
[2024-01-08 20:00] VITALS: BP 79/55; PULSE 96; O2SAT 95
--- NOTE | 2024-01-08 20:30 | PC.NURSE ---
Family updated on transfer to [facility], we are awaiting bed, if it is going to be extended amount of time we will try to admit here until bed at [facility] is ready
[2024-01-08 20:57] LABS: Hematocrit 25.2 % (42.0-52.0)
[2024-01-08 21:43] VITALS: BP 79/55; PULSE 89; RESP 18; TEMP 36.8; O2SAT 96
--- NOTE | 2024-01-08 21:43 | PC.NURSE ---
received call back from lab that blood was ready. spoke with who states we will put that on hold and notify if needed. vss.
== END 2024-01-08 21:46 | disposition short-term general hospital (02) ==
PROVIDERS: Physician Assistant; Emergency Provider Student in an Organized Health Care Education/Training Program; PCP Internal Medicine Adolescent Medicine
DX: K92.1 Melena (principal); R10.30 Lower abdominal pain, unspecified; N17.9 Acute kidney failure, unspecified; R39.2 Extrarenal uremia; D64.9 Anemia, unspecified; E03.9 Hypothyroidism, unspecified; I10 Essential (primary) hypertension; J44.9 Chronic obstructive pulmonary disease, unspecified
CPT/HCPCS: 36415; 36430; 74177; 80053; 82272; 82550; 82803; 83735; 85014; 85018; 85025; 85610; 86850; 96361; 96374; 96375; 96376; 99285; G0328; J0131; Q9967

== ENCOUNTER 2024-10-15 09:00 | Outpatient (RCR) | payer MEDICARE, SELFPAY ==
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
== END 2024-10-15 23:59 | disposition home or self-care (01) ==
LOC: PT 09:00
PROVIDERS: PCP Internal Medicine Adolescent Medicine; Visit Provider Internal Medicine Adolescent Medicine
DX: I89.0 Lymphedema, not elsewhere classified (principal); S81.802A Unspecified open wound, left lower leg, initial encounter
CPT/HCPCS: 97163; 97597; 97598

== ENCOUNTER 2024-11-15 15:00 | Outpatient (RCR) | payer MEDICARE, SELFPAY ==
--- NOTE | 2024-10-22 16:00 | HMH.RHREAS ---
Rehab Reassessment Rehab OP Re-assessment Start: 10/20/24 14:41 Freq: Status: Active Protocol: Document 10/22/24 15:50 PHOLINETTE (Rec: 10/22/24 16:00 DEENA [id number]) E-signed By Maximino Sin, PT Rehab Re-assessment Subjective Subjective Pt reports he went to the doctor, got antibiotics for wound. Not running a fever. He reports pain at this time is 1/10 in the L LE. Objective Objective Notes L lower leg wound: L= 13.5 cm, W= 29.0 cm, D= 0.1 cm. Wound has increased overall surface area by 158% vs initial evaluation. Drainage: Large amts of serosanguineous drainage noted . TTP: 1/4 L lower leg Assessment Progress Assessment Slower Than Expected Assessment Notes Pt has shown significant increase in overall total wound surface area with no real reduction of L LE edema. He continues to need skilled therapy services to reduce overall wound surface area and edema in order to return to PLOF. Patient goals met ST/5 LT/7 Plan Plan Continue per initial POC. Frequency of Therapy 2 x/wk Duration of therapy 4 wks Time and Billing Re-Eval Time 12 Re-Eval Billing Units 1 Charge for PT reassessment? Yes PHYSICIAN CERTIFICATION: I certify the specified therapy services for Caleb Resendez are required, authorized, and reviewed every 30 days.
== END 2024-11-15 23:59 | disposition home or self-care (01) ==
LOC: PT 15:00
PROVIDERS: PCP Internal Medicine Adolescent Medicine; Visit Provider Internal Medicine Adolescent Medicine
DX: I89.0 Lymphedema, not elsewhere classified (principal); S81.802A Unspecified open wound, left lower leg, initial encounter
CPT/HCPCS: 97164; 97597; 97598

== ENCOUNTER 2024-12-15 09:00 | Outpatient (RCR) | payer MEDICARE, SELFPAY ==
--- NOTE | 2024-11-22 17:26 | HMH.RHREAS ---
Rehab Reassessment Rehab OP Re-assessment Start: 11/17/24 16:13 Freq: Status: Active Protocol: Document 11/22/24 17:20 PHORRYAN (Rec: 11/22/24 17:26 PHORNE [id number]) E-signed By aMximino Sin, PT Lili Wound Assessment Tool Assessment Wound size 5=Length x Width >80 sq cm Wound depth 3=Full thickness skin loss involving damage or necrosis of Wound edges 2=Distinct, outline clearly visible, attached, even with wound base Wound undermining 1=None present Necrotic tissue type 2=White/domingo non-viable tissue &/or non-adherent yellow slough Necrotic tissue amount 2=<25% of wound bed covered Exudate type 4=Serous: thin, watery, clear Exudate amount 5=Large Skin color surrounding wound 2=Bright red &/or blanches to touch Peripheral tissue edema 5=Crepitus and/or pitting edema extends > or = 4 cm around wound Peripheral tissue induration 1=None present Granulation tissue 2=Bright, beefy red;75% to 100 % of wound filled &/or tissue overgrowth Epithelialization 5= < 25% wound covered Wound assessment total score 39 Rehab Re-assessment Subjective Subjective My leg really vargas when it starts draining a lot, I just have to get the dressing off Sometimes changes dsg 3x a day . States he isn't feeling well, going to see Dr. Jaramillo tomorrow, hasn't heard from vascular yet for f/u. Objective Objective Notes L lower leg wound: L= 19.0 cm, W= 32.0 cm, D= 0.1 cm. Wound has increased overall surface area by 158% vs initial evaluation. Drainage: Copious amts of serosanguineous drainage noted . TTP: 1/4 L lower leg Assessment Progress Assessment Slower Than Expected Assessment Notes Pt has shown continued significant increase in overall total wound surface area with no real reduction of L LE edema. He continues to need skilled therapy services to reduce overall wound surface area and edema in order to return to PLOF. Patient goals met ST/5 LT/7 Plan Plan Continue per initial POC. Attempting to get referral to vascular surgery for further work-up Frequency of Therapy 2-3 x/wk Duration of therapy 4 wks Time and Billing Re-Eval Time 12 Re-Eval Billing Units 0 Charge for PT reassessment? No PHYSICIAN CERTIFICATION: I certify the specified therapy services for Caleb Enrique Brierly are required, authorized, and reviewed every 30 days.
== END 2024-12-15 23:59 | disposition home or self-care (01) ==
LOC: PT 09:00
PROVIDERS: PCP Internal Medicine Adolescent Medicine; Visit Provider Internal Medicine Adolescent Medicine
DX: I89.0 Lymphedema, not elsewhere classified (principal); S81.802A Unspecified open wound, left lower leg, initial encounter
CPT/HCPCS: 29580; 97597; 97598

== ENCOUNTER 2025-01-14 11:30 | Outpatient (RCR) | payer MEDICARE, SELFPAY ==
--- NOTE | 2024-12-20 14:25 | HMH.RHREAS ---
Rehab Reassessment Rehab OP Re-assessment Start: 12/17/24 13:12 Freq: Status: Active Protocol: Document 12/20/24 14:11 PHORNE (Rec: 12/20/24 14:25 PHORNE [id number]) E-signed By Maximino Sin, PT Lili Wound Assessment Tool Assessment Wound size 5=Length x Width >80 sq cm Wound depth 2=Partial thickness skin loss involving epidermis &/or dermis Wound edges 2=Distinct, outline clearly visible, attached, even with wound base Wound undermining 1=None present Necrotic tissue type 1=Non visible Necrotic tissue amount 1=None visible Exudate type 4=Serous: thin, watery, clear Exudate amount 5=Large Skin color surrounding wound 2=Bright red &/or blanches to touch Peripheral tissue edema 1=No swelling or edema Peripheral tissue induration 1=None present Granulation tissue 2=Bright, beefy red;75% to 100 % of wound filled &/or tissue overgrowth Epithelialization 5= < 25% wound covered Wound assessment total score 32 Rehab Re-assessment Subjective Subjective Pt reports most dressings result in burning to his L lower leg. ABD pads and rolled gauze are the only dressings he feels comfortable with. He reports he is almost finished with his oral abx. Objective Objective Notes L lower leg wound: L= 23.0 cm, W= 28.0 cm, D= 0.1 cm. Wound has increased overall surface area by 490% vs initial evaluation. Drainage: Copious amts of serous drainage noted. TTP: 1/4 L lower leg Assessment Progress Assessment Slower Than Expected Assessment Notes Pt continues to show steadily increased size of total wound surface area vs initial evaluation with continued copious amts of drainage noted . Wound length and width fluctuate, but total surface area remains significantly increased. Skilled therapy services remain indicated to decrease total wound surface area and aid pt return to PLOF with all daily activities. Patient goals met ST/5 LT/7 Plan Plan Continue per initial POC. Has follow-up with Vascular Surgery in next 1-2 weeks. Frequency of Therapy 2-3 x/wk Duration of therapy 4 wks Time and Billing Re-Eval Time 13 Re-Eval Billing Units 1 Charge for PT reassessment? Yes PHYSICIAN CERTIFICATION: I certify the specified therapy services for Caleb Enrique Brierly are required, authorized, and reviewed every 30 days.
== END 2025-01-14 23:59 | disposition home or self-care (01) ==
LOC: PT 11:30
PROVIDERS: PCP Internal Medicine Adolescent Medicine; Visit Provider Internal Medicine Adolescent Medicine
DX: S81.802A Unspecified open wound, left lower leg, initial encounter (principal); I89.0 Lymphedema, not elsewhere classified
CPT/HCPCS: 97164; 97597; 97598

== ENCOUNTER 2025-02-11 10:30 | Outpatient (RCR) | payer MEDICARE, SELFPAY ==
--- NOTE | 2025-01-17 11:43 | HMH.RHREAS ---
Rehab Reassessment Rehab OP Re-assessment Start: 01/17/25 11:35 Freq: Status: Active Protocol: Document 01/17/25 11:35 DEENA (Rec: 01/17/25 11:42 PHORNE [id number]) E-signed By Maximino Sin, PT Lili Wound Assessment Tool Assessment Wound size 5=Length x Width >80 sq cm Wound depth 3=Full thickness skin loss involving damage or necrosis of Wound edges 3=Well-defined, not attached to wound base Wound undermining 1=None present Necrotic tissue type 1=Non visible Necrotic tissue 1=None visible amount Exudate type 4=Serous: thin, watery, clear Exudate amount 5=Large Skin color 2=Bright red &/or blanches to touch surrounding wound Peripheral tissue 5=Crepitus and/or pitting edema extends > or = 4 cm edema around wound Peripheral tissue 1=None present induration Granulation tissue 2=Bright, beefy red;75% to 100% of wound filled &/or tissue overgrowth Epithelialization 5= < 25% wound covered Wound assessment 38 total score Rehab Re-assessment Subjective Subjective Pt reports no new changes in the amount of pain or discomfort he is having at this time. He does report increased wound size and increased drainage amounts from his L LE wound. He presents to clinic with ~4 baby diapers wrapped wound his lower leg to control the drainage. Objective Objective Notes L lower leg wound: L= 22.4 cm, W= 27.6 cm, D= 0.1 cm. Wound has increased overall surface area by ~490% vs initial evaluation. Drainage: Copious amts of serous drainage noted. TTP: 1/ L lower leg Assessment Progress Assessment Slower Than Expected Assessment Notes Pt has shown minimal changes in his overall wound surface area vs his previous reassessment. He continues to have difficulty controlling the amount of drainage he is suffering. Skilled therapy services remain indicated in order to aid reduction of pt wound surface area and improve healing rates in order to return pt to prior level of function with all ADLs. Patient goals met ST/5 LT/7 Plan Plan Continue per initial POC. Pt had vascular surgery consult with no changes in treatment regimen noted. Frequency of Therapy 2 x/wk Duration of therapy 4 wks Time and Billing Re-Eval Time 10 Re-Eval Billing 0 Units Charge for PT No reassessment? PHYSICIAN CERTIFICATION: I certify the specified therapy services for Caleb Enrique Brierly are required, authorized, and reviewed every 30 days.
== END 2025-02-11 23:59 | disposition home or self-care (01) ==
LOC: PT 10:30
PROVIDERS: PCP Internal Medicine Adolescent Medicine; Visit Provider Internal Medicine Adolescent Medicine
DX: S81.802A Unspecified open wound, left lower leg, initial encounter (principal); I89.0 Lymphedema, not elsewhere classified
CPT/HCPCS: 29580; 97597; 97598

== ENCOUNTER 2025-02-16 07:51 | Outpatient (RCR) | payer MEDICARE, SELFPAY | END 2025-02-16 23:59 | disposition home or self-care (01) | LOC: PT 07:51 | PROVIDERS: PCP Internal Medicine Adolescent Medicine; Visit Provider Internal Medicine Adolescent Medicine | DX: S81.802A Unspecified open wound, left lower leg, initial encounter (principal); I89.0 Lymphedema, not elsewhere classified | CPT/HCPCS: 97140 ==